=== PATIENT | male | born 1970 | race Caucasian/White ===

== ENCOUNTER 2019-10-25 12:00 | Observation (INO) ==
--- NOTE | 2019-10-25 12:18 | Emergency Department Note ---
History of Present Illness General Chief complaint: Chest Pain Stated complaint: CHEST PAIN,PAIN UNDER RIBS,SOB Time Seen by Provider: 10/25/19 12:06 History of Present Illness Provider complaint: Chest pain and leg rash Location: chest and lower extremity Maximum Pain Intensity: 3 Current Pain Intensity: 2 Quality: + stabbing and + sharp Relieved By: + none Associated symptoms: + chest pain, + cough and + shortness of breath 49-year-old male presents emergency department for chest pain or shortness of breath. Patient reports that the chest pain or shortness of breath have been on and off for the last 6 months. He reports the pain is located in his left chest. He states it is worse when he is yelling at his dogs and children. He also notes that he developed discoloration over his bilateral lower legs 2 days ago. He denies any fevers. He denies any cough. He denies any hemoptysis. He denies any recent travel. He denies any exogenous hormone usage. He denies any loss of taste or smell. Patient states he went to his PCP today who told him to come to the emergency department. Home Medications Home Medications Medication Instructions Recorded Confirmed Type albuterol sulfate 1 inh INHALATION QID PRN 10/25/19 10/25/19 History fluticasone propionate [Flovent 2 puff INHALATION BID 10/25/19 10/25/19 History HFA] ibuprofen 200 mg PO Q6H PRN 10/25/19 10/25/19 History lisinopril 10 mg PO DAILY 10/25/19 10/25/19 History Allergies Allergy/AdvReac Type Severity Reaction Status Date / Time Iodinated Contrast Media Allergy Severe Seizure Unverified 10/25/19 12:57 aspirin Allergy SWELLING Unverified 10/25/19 12:57 Penicillins Allergy SWELLING/HI Unverified 10/25/19 12:57 VES Past Med/Surg History Medical History (Updated 10/25/19 @ 16:43 by Bandar Munson) HLD (hyperlipidemia) HTN (hypertension) No pertinent family history Surgical History (Updated 10/25/19 @ 12:15 by Bandar Munson) No pertinent past surgical history Social History Smoking Status: Current every day smoker Feels Safe at Home: Yes Review of Systems A total of 10 systems reviewed and were otherwise negative Physical Exam Vital Signs Vital Signs - 24 hr 10/25/19 12:01 10/25/19 12:13 10/25/19 12:16 Temperature 36.7 C Temperature Source Oral Pulse Rate 109 H 102 H Pulse Rate from SpO2 Sensor 102 H Respiratory Rate 20 17 Respiratory Effort / Characteristics Non-Labored Spontaneous Respiratory Depth Normal Respiratory Pattern Regular Blood Pressure 152/69 H 179/103 H Blood Pressure Mean 96 133 Pulse Oximetry 94 94 Oxygen Delivery Method Room Air Room Air Room Air Oxygen Flow Rate Sepsis Recent Fever Within 48 Hours No Sepsis New/Unexplained Change in Mental Status N/A Sepsis Action Taken by Nursing No Action Required 10/25/19 13:00 10/25/19 13:30 10/25/19 14:38 Temperature Temperature Source Pulse Rate 102 H 99 H 101 H Pulse Rate from SpO2 Sensor 103 H 98 H 102 H Respiratory Rate 21 22 17 Respiratory Effort / Characteristics Respiratory Depth Respiratory Pattern Blood Pressure 173/107 H 153/104 H 135/96 Blood Pressure Mean 112 129 100 Pulse Oximetry 96 96 99 Oxygen Delivery Method Nasal Cannula Oxygen Flow Rate 3 Sepsis Recent Fever Within 48 Hours Sepsis New/Unexplained Change in Mental Status Sepsis Action Taken by Nursing 10/25/19 15:00 10/25/19 15:01 10/25/19 15:30 Temperature Temperature Source Pulse Rate 104 H 102 H 104 H Pulse Rate from SpO2 Sensor 104 H 101 H 104 H Respiratory Rate 19 16 20 Respiratory Effort / Characteristics Respiratory Depth Respiratory Pattern Blood Pressure 163/116 H 174/97 H Blood Pressure Mean 142 146 Pulse Oximetry 100 98 100 Oxygen Delivery Method Nasal Cannula Nasal Cannula Nasal Cannula Oxygen Flow Rate 3 3 3 Sepsis Recent Fever Within 48 Hours Sepsis New/Unexplained Change in Mental Status Sepsis Action Taken by Nursing 10/25/19 15:31 Temperature Temperature Source Pulse Rate 104 H Pulse Rate from SpO2 Sensor 104 H Respiratory Rate 17 Respiratory Effort / Characteristics Respiratory Depth Respiratory Pattern Blood Pressure Blood Pressure Mean Pulse Oximetry 99 Oxygen Delivery Method Nasal Cannula Oxygen Flow Rate 3 Sepsis Recent Fever Within 48 Hours Sepsis New/Unexplained Change in Mental Status Sepsis Action Taken by Nursing Physical Exam GENERAL: He is oriented to person, place, and time. He appears well-developed and well-nourished. He does not appear distressed. HENT: Exam performed. - Head: Normocephalic and atraumatic. - Right Ear: External ear normal. No mastoid tenderness. - Left Ear: External ear normal. No mastoid tenderness. - Mouth/Throat: The oropharynx is clear and moist. No trismus in the jaw. No dental abscesses or uvula swelling. No oropharyngeal exudate or tonsillar abscesses. EYES: Conjunctivae and EOM are normal. Pupils are equal, round, and reactive to light. Right eye exhibits no discharge. Left eye exhibits no discharge. No scleral icterus. NECK: Normal range of motion. Neck supple. No JVD present. No spinous process t enderness present. No carotid bruit present. No rigidity. No tracheal deviation and normal range of motion present. No Brudzinski's sign and no Kernig's sign noted. CV: Tachycardic rate rate, regular rhythm, normal heart sounds and intact distal pulses. There is no peripheral edema. Palpable radial pulses bue. PULM/CHEST: Rhonchi bilaterally - Chest Wall: He exhibits no tenderness. ABD: The abdomen is soft and obese. Bowel sounds are normal. He has no distension. No mass is present. There is no tenderness. There is no rebound, no guarding, no Gutierrez's sign and no tenderness at McBurney's point. Rovsig negative. MUSC/SKEL: Normal range of motion. There is no peripheral edema, tenderness or deformity. LYMPH: No cervical adenopathy. NEURO: He is alert and oriented to person, place, and time. He has normal strength. No cranial nerve deficit or sensory deficit. Coordination and gait normal. GCS eye subscore is 4. GCS verbal subscore is 5. GCS motor subscore is 6. Cerebellar tests wnl. SKIN: Mild discoloration over the anterior shins bilaterally. The rash is macular. There are no papules. There are no vesicles. They are nonpainful. There is no blanching. Nikolsky negative. There is no warmth over the lesions. The rash is consistent with stasis dermatitis. PSYCH: He has a normal mood and affect. Behavior is normal. Judgment and thought content normal. Course Course 1206: The patient was evaluated in room B5. A complete history and physical exam was performed. Cardiac monitoring: An order was placed for continuous cardiac monitoring. The monitor shows a rate of 108 with sinus rhythm 1600: During the emergency department stay the, the patient became hypoxic on room air. Supplemental oxygen was applied via nasal cannula which improved the patient's oxygen saturation. Patient's troponin is negative. Chest x-ray shows fluid overload. D-dimer was elevated. A subsequent ultrasound of the bilateral lower extremity showed no DVT. We wanted to obtain CT of the chest to rule out PE, however the patient states he has an anaphylactic reaction to contrast dye staining his throat closes up and he cannot breathe. Given the patient's elevated d-dimer, tachycardia on arrival, and hypoxia, PE was still strong on the differential list. I discussed the case with [facility] hospitalist Stacy Ennis PA-C who stated to admit to Dr. Shruthi Roe service. She states that they will determine how best to anticoagulate the patient until VQ scan can be conducted in the morning. Critical Care Time Critical Care Time: Yes Total Critical Care Time: 43 I have personally spent greater than 43 minutes of critical care time in the direct management of this patient. This includes bedside care, interpretation of diagnostic studies, and testing, discussion with consultants, patient, and family members, and other required patient management activities. This 43 minutes is in excess of all separately billable procedures. Medical Decision Making Laboratory Data Result diagrams: 10/25/19 12:43 10/25/19 12:43 Lab Results 10/25/19 10/25/19 10/25/19 Range/Units 12:43 12:43 12:43 WBC 7.25 (4.8-10.8) K/uL RBC 4.78 (4.7-6.1) M/uL Hgb 14.6 (14.0-18.0) g/dL Hct 45.6 (42-52) % MCV 95.4 (80-100) fL MCH 30.5 (25-34) pg MCHC 32.0 (32-36) g/dL RDW Std Deviation 52.9 H (36.4-46.3) fL RDW Coeff of Sallie 15.2 H (11.5-14.5) % Plt Count 202 (130-400) K/uL MPV 12.1 H (7.4-10.4) fL Immature Gran % (Auto) 0.1 % Neut % (Auto) 61.4 % Lymph % (Auto) 26.6 % Coos % (Auto) 6.9 % Eos % (Auto) 4.4 % Baso % (Auto) 0.6 % Neut # (Auto) 4.45 (1.4-6.5) K/uL Lymph # (Auto) 1.93 (1.2-3.4) K/uL Coos # (Auto) 0.50 (0.11-0.59) K/uL Eos # (Auto) 0.32 (0-0.5) K/uL Baso # (Auto) 0.04 (0-0.2) K/uL Immature Gran # (Auto) 0.01 (0.00-0.02) K/uL PT 10.1 (9.0-12.0) Seconds INR 1.0 (0.9-1.1) APTT 26.0 (21.0-31.0) Seconds PTT Ratio 0.9 D-Dimer 1090 H* (0-500) ug/L FEU Sodium 142 (136-145) mmol/L Potassium 4.4 (3.5-5.1) mmol/L Chloride 104 (98-107) mmol/L Carbon Dioxide 33 H (21-32) mmol/L Anion Gap 5.0 (3-11) BUN 8 (7-18) mg/dl Creatinine 0.70 (0.6-1.4) mg/dl Est Cr Clr Drug Dosing 225.0 ml/min Est GFR ( Amer) 129.3 Est GFR (Non-Af Amer) 111.6 BUN/Creatinine Ratio 11.0 (10-20) Glucose 98 (70-99) mg/dl Calcium 9.1 (8.5-10.1) mg/dl Troponin I < 0.015 (0-0.045) ng/ml NT-Pro-B Natriuret Pep (0-450) pg/ml Lipase 156 (73-393) U/L TSH (0.300-4.500) uIu/ml 10/25/19 Range/Units 12:43 WBC (4.8-10.8) K/uL RBC (4.7-6.1) M/uL Hgb (14.0-18.0) g/dL Hct (42-52) % MCV (80-100) fL MCH (25-34) pg MCHC (32-36) g/dL RDW Std Deviation (36.4-46.3) fL RDW Coeff of Sallie (11.5-14.5) % Plt Count (130-400) K/uL MPV (7.4-10.4) fL Immature Gran % (Auto) % Neut % (Auto) % Lymph % (Auto) % Coos % (Auto) % Eos % (Auto) % Baso % (Auto) % Neut # (Auto) (1.4-6.5) K/uL Lymph # (Auto) (1.2-3.4) K/uL Coos # (Auto) (0.11-0.59) K/uL Eos # (Auto) (0-0.5) K/uL Baso # (Auto) (0-0.2) K/uL Immature Gran # (Auto) (0.00-0.02) K/uL PT (9.0-12.0) Seconds INR (0.9-1.1) APTT (21.0-31.0) Seconds PTT Ratio D-Dimer (0-500) ug/L FEU Sodium (136-145) mmol/L Potassium (3.5-5.1) mmol/L Chloride (98-107) mmol/L Carbon Dioxide (21-32) mmol/L Anion Gap (3-11) BUN (7-18) mg/dl Creatinine (0.6-1.4) mg/dl Est Cr Clr Drug Dosing ml/min Est GFR ( Amer) Est GFR (Non-Af Amer) BUN/Creatinine Ratio (10-20) Glucose (70-99) mg/dl Calcium (8.5-10.1) mg/dl Troponin I (0-0.045) ng/ml NT-Pro-B Natriuret Pep 402 (0-450) pg/ml Lipase (73-393) U/L TSH 1.230 (0.300-4.500) uIu/ml Imaging Data Radiologist's Impression: ULTRASOUND BILATERAL LOWER EXTREMITY VENOUS CLINICAL HISTORY: Bilateral lower extremity edema/cellulitis. COMPARISON STUDY: No priors. TECHNIQUE: Real-time, grayscale, and color Doppler sonography of the deep veins of the right and left lower extremity was performed from the inguinal crease to the calf. Compression and augmentation were utilized. FINDINGS: There is no sonographic evidence of deep venous thrombosis identified in the right or left lower extremity. The common femoral, superficial femoral, and popliteal veins are patent and normally compressible bilaterally. The greater saphenous vein and the profunda femoris vein at the junction with the common femoral vein are clear in both legs. The visualized calf veins are patent bilaterally. IMPRESSION: There is no sonographic evidence of deep venous thrombosis identified in the right or left lower extremity. ACT 112: Negative or not required by law. Electronically signed by: Freddy Lizama M.D. 10/25/2019 2:29 PM Dictated: 10/25/19 1428 Transcribed: 10/25/19 1428 XR chest 1V portable CLINICAL HISTORY: Chest Pain pain COMPARISON STUDY: 10/02/2008 FINDINGS: Cardiomegaly. Prominent pulmonary vasculature. Diaphragms are smooth. IMPRESSION: Congestive heart failure. ACT 112: Negative or not required by law. The above report was generated using voice recognition software. It may contain grammatical, syntax or spelling errors. Electronically signed by: Flavio Clayton M.D. 10/25/2019 12:41 PM Dictated: 10/25/19 1240 Transcribed: 10/25/19 1240 ECG Data Indication: + chest pain and + SOB/dyspnea Rate (beats per minute): 105 Rhythm: + sinus tachycardia ECG Intervals/blocks: + Normal QRS, + Normal [place] and + Normal QT-c ECG ST segments: + Normal ST segments MDM Narrative 1206: The patient was evaluated in room B5. A complete history and physical exam was performed. Cardiac monitoring: An order was placed for continuous cardiac monitoring. The monitor shows a rate of 108 with sinus rhythm 1600: During the emergency department stay the, the patient became hypoxic on room air. Supplemental oxygen was applied via nasal cannula which improved the patient's oxygen saturation. Patient's troponin is negative. Chest x-ray shows fluid overload. D-dimer was elevated. A subsequent ultrasound of the bilateral lower extremity showed no DVT. We wanted to obtain CT of the chest to rule out PE, however the patient states he has an anaphylactic reaction to contrast dye staining his throat closes up and he cannot breathe. Given the patient's elevated d-dimer, tachycardia on arrival, and hypoxia, PE was still strong on the differential list. I discussed the case with [facility] hospitalist Stacy Ennis PA-C who stated to admit to Dr. Shruthi otero. She states that they will determine how best to anticoagulate the patient until VQ scan can be conducted in the morning. Impression & Plan Hypoxia, Chest pain, D-dimer, elevated Discharge Plan Visit Data Chief Complaint: Chest Pain Stated Complaint: CHEST PAIN,PAIN UNDER RIBS,SOB ED Provider: Bandar Munson Discharge Problem: Hypoxia, Chest pain, D-dimer, elevated Patient Disposition: Being Evaluated by Hospitalist Forms Stand Alone Forms: [facility] Prescriptions Prescriptions: No Action ibuprofen 200 mg Tablet 200 mg PO Q6H PRN (Reason: Pain) RF: 0 lisinopril 10 mg Tablet 10 mg PO DAILY RF: 0 Flovent HFA 220 mcg/actuation Hfa Aerosol Inhaler 2 puff INHALATION BID RF: 0 albuterol sulfate 90 mcg/actuation Hfa Aerosol Inhaler 1 inh INHALATION QID PRN (Reason: Shortness Of Breath) RF: 0 Referrals Referrals: Juan Antonio Bertrand DO [Primary Care Provider] - Discharge Problem: Chest pain Qualifiers: Chest pain type: unspecified Qualified Code(s): R07.9 - Chest pain, unspecified
--- NOTE | 2019-10-25 12:42 | XRay Report ---
XR chest 1V portable CLINICAL HISTORY: Chest Pain pain COMPARISON STUDY: 10/02/2008 FINDINGS: Cardiomegaly. Prominent pulmonary vasculature. Diaphragms are smooth. IMPRESSION: Congestive heart failure. ACT 112: Negative or not required by law. The above report was generated using voice recognition software. It may contain grammatical, syntax or spelling errors. Electronically signed by: Flavio Clayton M.D. 10/25/2019 12:41 PM
[2019-10-25 12:51] LABS: Basophils # (auto) 0.04 K/uL (0-0.2); Basophils % (auto) 0.6 %; Eosinophils # (auto) 0.32 K/uL (0-0.5); Eosinophils % (auto) 4.4 %; Hematocrit (blood only) 45.6 % (42-52); Hemoglobin 14.6 g/dL (14.0-18.0); Immature Granulocytes # (auto) 0.01 K/uL (0.00-0.02); Immature Granulocytes % (auto) 0.1 %; Lymphocytes # (auto) 1.93 K/uL (1.2-3.4); Lymphocytes % (auto) 26.6 %; Mean Corpuscular Hemoglobin 30.5 pg (25-34); Mean Corpuscular Volume 95.4 fL (80-100); Mean Platelet Volume 12.1 fL (7.4-10.4); Monocytes % (auto) 6.9 %; Neutrophils # (auto) 4.45 K/uL (1.4-6.5); Neutrophils % (auto) 61.4 %; Platelet Count 202 K/uL (130-400); RDW Coefficient of Variation 15.2 % (11.5-14.5); RDW Standard Deviation 52.9 fL (36.4-46.3); Red Blood Count 4.78 M/uL (4.7-6.1); White Blood Count 7.25 K/uL (4.8-10.8)
[2019-10-25 13:04] LABS: Partial Thromboplastin Ratio 0.9; Prothrombin Time 10.1 Seconds (9.0-12.0)
[2019-10-25 13:07] LABS: D Dimer 1090 ug/L FEU (0-500)
[2019-10-25 13:08] LABS: Blood Urea Nitrogen 8 mg/dl (7-18); Calcium 9.1 mg/dl (8.5-10.1); Carbon Dioxide 33 mmol/L (21-32); Chloride 104 mmol/L (98-107); Est GFR (African American) 129.3; Est GFR (Non-African American) 111.6; Glucose 98 mg/dl (70-99); Lipase 156 U/L (73-393); Potassium 4.4 mmol/L (3.5-5.1); Sodium 142 mmol/L (136-145)
[2019-10-25 13:13] LABS: Troponin I < 0.015 ng/ml (0-0.045)
--- NOTE | 2019-10-25 14:30 | Ultrasound Report ---
ULTRASOUND BILATERAL LOWER EXTREMITY VENOUS CLINICAL HISTORY: Bilateral lower extremity edema/cellulitis. COMPARISON STUDY: No priors. TECHNIQUE: Real-time, grayscale, and color Doppler sonography of the deep veins of the right and left lower extremity was performed from the inguinal crease to the calf. Compression and augmentation wer e utilized. FINDINGS: There is no sonographic evidence of deep venous thrombosis identified in the right or left lower extremity. The common femoral, superficial femoral, and popliteal veins are patent and normally compressible bilaterally. The greater saphenous vein and the profunda femoris vein at the junction w ith the common femoral vein are clear in both legs. The visualized calf veins are patent bilaterally. IMPRESSION: There is no sonographic evidence of deep venous thrombosis identified in the right or lef t lower extremity. ACT 112: Negative or not required by law. Electronically signed by: Freddy Lizama M.D. 10/25/2019 2:29 PM
[2019-10-25] MEDS ORDERED: NITROGLYCERIN SL 0.4 MG/TAB TAB SL PRN (16:00)
[2019-10-25] MEDS ORDERED: SODIUM CHLORIDE 0.9% 1000ML 1,000 ML IV SCH (16:00)
[2019-10-25] MEDS ORDERED: ACETAMINOPHEN 325 MG TAB PO PRN (16:00)
[2019-10-25] MEDS ORDERED: ONDANSETRON INJ 2 MG/ML 2 ML VIAL IV PRN (16:00)
[2019-10-25] MEDS ORDERED: FAMOTIDINE 20 MG TAB PO ONE (16:09)
[2019-10-25] MEDS ORDERED: predniSONE 50 MG TAB PO STA (16:09)
[2019-10-25] MEDS ORDERED: predniSONE 50 MG TAB PO SCH (16:15)
[2019-10-25 16:32] LABS: Thyroid Stimulating Hormone 1.23 uIu/ml (0.300-4.500)
[2019-10-25] MEDS ORDERED: HEPARIN SOD (PORCINE) 1000 UNIT/ML 10 ML VIAL ONE (16:32)
[2019-10-25] MEDS ORDERED: Heparin BOLUS **ED Use Only IV STA (16:48)
[2019-10-25] MEDS: HEPARIN SODIUM/DEXTROSE 25,000 UNITS/500 ML BAG IV SCH (16:49)
[2019-10-25] MEDS ORDERED: FUROSEMIDE 40 MG/4 ML VIAL IV STA (16:55)
--- NOTE | 2019-10-25 16:59 | History & Physical Report ---
Date of Service October 25, 2019 Assessment & Plan (1) Chest pain: (2) Hypoxia: (3) D-dimer, elevated: This is a 49-year-old male with significant past medical history of HTN, prediabetes, COPD, tobacco abuse, GERD, history of bipolar, history of seizure, morbid obesity, factor V Leiden heterozygote who presents to ED secondary to left-sided chest pain off and on for the past 2 months; DONNELLY x1 month; worsening lower extremity swelling and redness x2 days. Of most concern given patient's history of factor V Leiden heterozygote is PE in setting of chest pain, hypoxia and sinus tachycardia. Other possible etiologies are ACS, CHF and volume overload (pt reports 70lb weight gain in 6 months), musculoskeletal as chest pain is reproducible, COPD exac Pt initially was saturating well on room air but did have a one-time episode of hypoxia requiring O2 via NC. Admit to telemetry Start heparin drip with bolus until PE ruled out VQ scan stat -anaphylactic reaction to contrast Echo stat to rule out valvular pathology, CHF or right heart strain in setting of concern for PE 40 mg IV Lasix x1 now, and then start 40 IV daily Daily weights, strict I's and O's, heart healthy low-sodium diet (4) Bilateral lower leg cellulitis: Bilateral lower extremity redness started 2 days ago, initially started on left leg and spreading to right Increased pain and swelling Allergy to penicillin Start oral doxycycline and monitor (5) Prediabetes: Last A1c 5.9 04/10/2019 Repeat A1c in a.m., monitor fasting blood sugar (6) HTN (hypertension): Blood pressure elevated in ED Missed a.m. dose of lisinopril, give 10 mg x 1 now Monitor (7) COPD (chronic obstructive pulmonary disease): No acute hernán exacerbation Continue Flovent, he admits to taking albuterol daily May need to step up therapy, likely contributing to DONNELLY (8) Heterozygous factor V Leiden mutation: No prior history of DVT Plan as above (9) Morbid obesity with BMI of 50.0-59.9, adult: Encourage weight loss Consult dietitian (10) GERD (gastroesophageal reflux disease): Continue PPI (11) DVT prophylaxis: Therapeutic heparin drip started Disposition: Admit to telemetry Follow-up: PCP Dr. Bertrand upon discharge Patient was seen and examined in collaboration with Dr. Christianson, please see addendum History of Present Illness Chief Complaint: Chest pain off and on x 2 months; DONNELLY x 1 month; worsened leg swelling x 2 days. Primary Care Provider: Juan Antonio Bertrand DO This is a 49-year-old male with significant past medical history of HTN, prediabetes, COPD, tobacco abuse, GERD, history of bipolar, history of seizure, morbid obesity, factor V Leiden heterozygote who presents to ED secondary to left-sided chest pain off and on for the past 2 months; DONNELLY x1 month; worsening lower extremity swelling and redness x2 days. He was seen and evaluated by PA in clinic and referred to ED. Brother is at bedside. He complains of left lateral chest pain that radiates laterally around the back. Symptoms come and go and do not occur daily. Symptoms are worse with deep inspiration, coughing, yawning or laughing. Symptoms last for approximately seconds to minutes and then resolved. They have never occurred at rest. Over the last month he has noticed increased shortness of breath with exertion and walking but denies any shortness breath at rest. Denies any orthopnea but does appreciate PND. He is currently being evaluated by sleep medicine and is currently scheduled to undergo outpatient sleep study. He has chronic cough in the setting of tobacco abuse. Cough is usually dry and feels it is at his baseline. He currently denies any fever, chills, sweats, lightheadedness, dizziness, syncope, palpitations, hemoptysis, nausea, vomiting, abdominal pain. He has appreciated approximately 70 pound weight gain in the past 6 months despite decreased oral intake. He denies any increased abdominal bloating or early satiety. He does have worsened lower extremity edema which he feels is off and on and mostly always worse in the evening. Over the past 2 days swelling has been persistent and he has noted a red rash to bilateral lower extremities that initially started on his left leg and is now on his right. He does have bilateral lower extremity leg pain but attributes this to arthritis and takes ibuprofen. He denies any prior history of cardiac disease, CHF, PE or DVT. His mother is on warfarin for prior blood clots and he is heterozygote factor V. In ED he was hypertensive but admits to not taking lisinopril. According to ED provider he did have episode of hypoxia documented at 84% requiring O2 via NC. Lab work revealed relatively unremarkable CBC, elevated d-dimer 1090, K4.4, CO2 33, BUN 8, creatinine 0.7, troponin WNL, proBNP 402, TSH 1.23. EKG revealed sinus tachycardia with an incomplete right bundle branch block heart rate 105, QTc 481 MS. Chest x-ray revealed CHF and a venous Doppler study was negative for DVT. Allergies Allergy/AdvReac Type Severity Reaction Status Date / Time Iodinated Contrast Media Allergy Severe Seizure Unverified 10/25/19 12:57 aspirin Allergy SWELLING Unverified 10/25/19 12:57 Penicillins Allergy SWELLING/HI Unverified 10/25/19 12:57 VES Home Medications Home Medications Medication Instructions Recorded Confirmed Type albuterol sulfate 1 inh INHALATION QID PRN 10/25/19 10/25/19 History fluticasone propionate [Flovent 2 puff INHALATION BID 10/25/19 10/25/19 History HFA] ibuprofen 200 mg PO Q6H PRN 10/25/19 10/25/19 History lisinopril 10 mg PO DAILY 10/25/19 10/25/19 History pantoprazole 20 mg PO BID 10/25/19 10/25/19 History Past Med/Surg History Medical History (Updated 10/25/19 @ 17:24 by Stacy Ott PA-C) Bipolar disorder COPD (chronic obstructive pulmonary disease) GERD (gastroesophageal reflux disease) Heterozygous factor V Leiden mutation History of seizure As child HTN (hypertension) Morbid obesity with BMI of 50.0-59.9, adult Prediabetes Tobacco abuse Surgical History History of facial surgery Reconstruction after dog bite History of hernia repair History of tonsillectomy and adenoidectomy Family History Mother Deep vein thrombosis Factor V Leiden Brother Factor V Leiden Father Seizure disorder Social History (Updated 10/25/19 @ 17:15 by Stacy Ott PA-C) Smoking Status: Current every day smoker Tobacco Type: Cigarettes packs per day: 1; Years Smoked: 30; Second Hand Exposure: No; Do You Dip or Chew Tobacco: No; Tobacco Cessation Education Requested by Patient: No Hx Alcohol Use: No Hx Substance Use: No Preferred Language: Yakut Communication Ability: Effective Lockstitch Cup Setter Required: No Beliefs That Will Affect Care: None Current Living Situation: Significant Other current occupational status: disabled Other Information That Helps Us Care for You: No Feels Safe at Home: Yes Safety Concerns: Feels Safe At This Time Review of Systems Review of Systems: All systems reviewed & are unremarkable except as noted in HPI & below Physical Exam Physical Exam: Constitutional: Morbidly obese, male, vitals as above, NAD, sitting up in bed, pleasant, conversing easily Head: Normocephalic, Atraumatic Eyes: PERRL, conjunctivae normal, anicteric sclerae ENMT: external ear and nose normal, oropharynx normal Neck: trachea midline, no thyromegaly normal visual inspection Respiratory: On O2 via NC 2L, normal respiratory effort, lungs clear to auscultation, audible expiratory wheeze right lower lobe cleared with coughing, no rales, rhonchi. Normal insp/exp effort, no accessory muscle use Cardiovascular: Sinus tachycardia, regular rhythm, no murmur, lower extremity pretibial and pedal edema with pretibial erythema left greater than right, pain to palpation, negative Kia Vessels: no JVD or carotid bruit Chest: normal inspection of chest, pinpoint tenderness to left MCL under breast Abdomen: Protuberant abdomen, normal bowel sounds, soft, nontender, no hepatosplenomegaly Musculoskeletal: no cyanosis or clubbing, extremities motor strength 5/5 Skin: Bilateral pretibial erythema, blanchable, left better than right, bilateral pedal pulse +2, warm and dry normal turgor Neurologic: PERRL, EOMI, accommodation nl, no face palsy, no dysarthria CN's II-XI intact bilaterally and moves all extremities Psychiatric: A+Ox3, euthymic affect Lymphatic: no cervical or axillary lymphadenopathy : deferred Results & Data Results & Data ([facility]) Vital Signs (Past 12 Hours) Vital Signs Temp Pulse Resp BP Pulse Ox 10/25/19 15:31 104 H 17 99 10/25/19 15:30 104 H 20 174/97 H 100 10/25/19 15:01 102 H 16 98 10/25/19 15:00 104 H 19 163/116 H 100 10/25/19 14:38 101 H 17 135/96 99 10/25/19 13:30 99 H 22 153/104 H 96 10/25/19 13:00 102 H 21 173/107 H 96 10/25/19 12:13 102 H 17 179/103 H 94 10/25/19 12:01 36.7 C 109 H 20 152/69 H 94 Laboratory Results Short CBC 10/25/19 Range/Units 12:43 WBC 7.25 (4.8-10.8) K/uL Hgb 14.6 (14.0-18.0) g/dL Hct 45.6 (42-52) % Plt Count 202 (130-400) K/uL BMP 10/25/19 12:43 Sodium 142 Potassium 4.4 Chloride 104 Carbon Dioxide 33 H BUN 8 Creatinine 0.70 Glucose 98 Calcium 9.1 Cardiac Enzymes 10/25/19 Range/Units 12:43 Troponin I < 0.015 (0-0.045) ng/ml Diagnostic Findings CXR: CHF Venous Doppler: negative Medications Administered Heparin Sodium/Dextrose (Heparin Sodium/Dextrose) 25,000 units in 500 mls @ 44 mls/hr IV .[id number] SRIKANTH; Protocol Stop: 11/24/19 16:29 Last Admin: 10/25/19 16:49 Dose: 2,200 units/hr, 44 mls/hr Documented by: [id number] Cosigned by: [id number] Discontinued Medications Heparin Sodium (Porcine) (Heparin Iv Bolus) Confirm Administered Dose 10,000 units .ROUTE .STK-MED ONE Stop: 10/25/19 16:33 Last Admin: 10/25/19 16:49 Dose: Not Given Documented by: [id number] Heparin Sodium (Porcine) (Heparin Iv Bolus) 10,000 units IV NOW STA Stop: 10/25/19 16:49 Last Admin: 10/25/19 16:49 Dose: 10,000 units Documented by: [id number] Cosigned by: [id number] Heparin Sodium/Dextrose () 1 ea IV NOW STA; Protocol Stop: 10/25/19 16:29 Last Admin: 10/25/19 16:49 Dose: Not Given Documented by: [id number] Heparin Sodium/Dextrose () 1 ea IV Q15M SRIKANTH; Protocol Stop: 10/25/19 16:46 Last Admin: 10/25/19 16:49 Dose: Not Given Documented by: [id number] ECG Rate (beats per minute): 105 Rhythm: sinus tachycardia Findings: + RBBB and + prolonged QT (481ms) Code Status & VTE Plan Code Status Full Code VTE Prophylaxis Plan VTE Prophylaxis will be ordered: Yes Supervising Physician Co-Signing Physician Notes Date of Service: October 25, 2019 Attending addendum: Patient seen and examined, care coordinated with Stacy Jonas PA-C 49-year-old male with medical history of morbid obesity, tobacco abuse disorder, hypertension, depression, family history of coagulopathy/factor V Leiden heterozygous/no prior history of DVT or PE Came to ER with complaint of left-sided chest pain on and off for last few weeks, Pain is worsened with change of position, activity, noted to have significant shortness of breath, occasional orthopnea Bilateral lower extremity edema/painful pedal edema in the last 2-3 days No fever or chills Has chronic cough secondary to tobacco abuse, underlying COPD Also bilateral lower leg painful/erythematous rash developed in the last 2 days. Vitals as outlined Labs and images reviewed Physical exam: Brief General: Morbid obese, no apparent distress, shortness of breath with minimum activity, on 3 L oxygen, was not on home O2 HEENT: Unremarkable Abdomen: Obese, soft, nontender Extremities: Bilateral 3+ lower extremity edema, bilateral leg erythema, with increased warmth and tenderness noted on both leg, bilateral feet swelling,, tenderness on palpation of dorsal area, no open wounds noted Lungs: Clear to auscultate, episodes of wheeze noted Heart: Regular tachycardic Acute hypoxemic respiratory failure: Presented with acute hypoxia requiring supplemental oxygen, was not on home O2 Symptoms of ongoing shortness of breath, dyspnea on exertion on and off Ongoing for 6 months worse in past 2 weeks History of underlying COPD, does not appear to be in COPD exacerbation High suspicion for PE: Family history of coagulopathy, mother/brother had blood clot PE and DVT Patient is heterozygous for factor V Leiden mutation Not on any anticoagulation, does not take low-dose aspirin Patient had severe allergic reaction to IV contrast dye: Shortness of breath swelling on mouth and tongue, difficulty breathing, leading to seizure Ordered for VQ scan Nuclear med updated Started on IV heparin weight-based protocol-due to high suspicion for thromboembolic event Chest pain: Possible secondary to PE, patient also has reproducible chest wall tenderness, no rash noted EKG sinus tachycardia, initial troponin negative Elevated d-dimer, Evidence of volume overload, bilateral lower extremity edema, suggestive of possible cardiomyopathy rule out PE Ordered for echocardiogram, 40 mg IV Lasix ordered, for volume overload Monitoring telemetry Tachycardia: Sinus tach Rule out PE, echo to rule out underlying cardiomyopathy Bilateral lower extremity cellulitis: Will order for doxycycline, Lower extremity Doppler negative for DVT CODE STATUS: Full code DVT prophylaxis: IV heparin weight-based protocol Please refer to further documentation by Stacy Jonas PA-C for discussion of other issues Carla Christianson MD (1) Chest pain Chest pain type: unspecified Qualified Code(s): R07.9 - Chest pain, unspecified
--- NOTE | 2019-10-25 17:14 | Electrocardiogram Report ---
Test Reason : Blood Pressure : / mmHG Vent. Rate : 105 BPM Atrial Rate : 105 BPM P-R Int : 144 ms QRS Dur : 092 ms QT Int : 364 ms P-R-T Axes : 069 -04 051 degrees QTc Int : 481 ms Sinus tachycardia Incomplete right bundle branch block Borderline ECG When compared with ECG of 20-DEC-2008 23:25, No significant change was found Confirmed by Jermaine Murrell ([id number]) on 10/25/2019 5:14:24 PM Referred By: REFERRED SELF Confirmed By:Sanket Murrell
--- NOTE | 2019-10-25 17:26 | Communication Note ---
Date of Service: October 25, 2019 Attending addendum: Patient seen and examined, care coordinated with Stacy Jonas PA-C 49-year-old male with medical history of morbid obesity, tobacco abuse disorder, hypertension, depression, family history of coagulopathy/factor V Leiden heterozygous/no prior history of DVT or PE Came to ER with complaint of left-sided chest pain on and off for last few weeks, Pain is worsened with change of position, activity, noted to have significant shortness of breath, occasional orthopnea Bilateral lower extremity edema/painful pedal edema in the last 2-3 days No fever or chills Has chronic cough secondary to tobacco abuse, underlying COPD Also bilateral lower leg painful/erythematous rash developed in the last 2 days. Vitals as outlined Labs and images reviewed Physical exam: Brief General: Morbid obese, no apparent distress, shortness of breath with minimum activity, on 3 L oxygen, was not on home O2 HEENT: Unremarkable Abdomen: Obese, soft, nontender Extremities: Bilateral 3+ lower extremity edema, bilateral leg erythema, with increased warmth and tenderness noted on both leg, bilateral feet swelling,, tenderness on palpation of dorsal area, no open wounds noted Lungs: Clear to auscultate, episodes of wheeze noted Heart: Regular tachycardic Acute hypoxemic respiratory failure: Presented with acute hypoxia requiring supplemental oxygen, was not on home O2 Symptoms of ongoing shortness of breath, dyspnea on exertion on and off Ongoing for 6 months worse in past 2 weeks History of underlying COPD, does not appear to be in COPD exacerbation High suspicion for PE: Family history of coagulopathy, mother/brother had blood clot PE and DVT Patient is heterozygous for factor V Leiden mutation Not on any anticoagulation, does not take low-dose aspirin Patient had severe allergic reaction to IV contrast dye: Shortness of breath swelling on mouth and tongue, difficulty breathing, leading to seizure Ordered for VQ scan Nuclear med updated Started on IV heparin weight-based protocol-due to high suspicion for thromboembolic event Chest pain: Possible secondary to PE, patient also has reproducible chest wall tenderness, no rash noted EKG sinus tachycardia, initial troponin negative Elevated d-dimer, Evidence of volume overload, bilateral lower extremity edema, suggestive of possible cardiomyopathy rule out PE Ordered for echocardiogram, 40 mg IV Lasix ordered, for volume overload Monitoring telemetry Tachycardia: Sinus tach Rule out PE, echo to rule out underlying cardiomyopathy Bilateral lower extremity cellulitis: Will order for doxycycline, Lower extremity Doppler negative for DVT CODE STATUS: Full code DVT prophylaxis: IV heparin weight-based protocol Please refer to further documentation by Stacy Jonas PA-C for discussion of other issues Carla Christianson MD
--- NOTE | 2019-10-25 17:58 | Cardiology Consultation ---
Date of Consultation October 25, 2019 Assessment & Plan (1) Hypoxia: (2) Bilateral lower extremity edema: (3) Bilateral lower leg cellulitis: (4) Morbid obesity with BMI of 50.0-59.9, adult: (5) Heterozygous factor V Leiden mutation: The patient has a history of inherited coagulopathy in his family and apparently is heterozygous for the factor V Leiden mutation. Lower extremity venous duplex was negative for DVT. A stat echocardiogram and cardiology consultation was requested by the admitting team due to concerns of possible pulmonary embolism. Besides pulmonary embolism, I think that systolic and diastolic heart failure is also a consideration. Although his proBNP screen was relatively low at 402 PG per mL, I still think that volume overload due to left or right heart failure is a possibility or even obesity hypoventilation syndrome as his CO2 level is elevated. With the echocardiogram having been ordered after hours, a cardiovascular technician is on her way in from home, and just arrived. The report will be available for review after the study is completed. In the meantime I think it is most prudent to continue treatment for possible pulmonary embolism with unfractionated heparin, this would also be helpful in case he is having an acute coronary syndrome, although given his presentation, I am doubtful that this represents ACS although he may have chronic angina. I think the volume overload is the most significant concern. And therefore he has received 40 mg of IV furosemide. Further recommendations will be forthcoming after the echo was completed. History of Present Illness History of Present Illness Zurdo Schreiber is a 49 year old male seen in cardiology consultation per the request of Dr Christianson for the evaluation of chest pain and lower extremity edema. The patient was seen in ED bed B5 at 5:35 pm. During my assessment the patient is sitting upright with his legs dangling over the side of the bed. He remains tachycardic with sinus tachycardia in the range of 100 to 110 bpm. Blood pressure remains elevated with reading of 151/104, oxygen saturation is 99% on 3 L nasal cannula. He denies any acute distress. He states his most significant concern was the swelling and redness of his legs. He states that he has had chest pain/tightness with walking and with "yelling "for the last 1-1/2 years and he does not believe it has changed much. A screening d-dimer is elevated. There was concern therefore for DVT and pulmonary embolism. Lower extremity venous duplex is already been performed and it was within normal limits. He is not a candidate for a CT angiogram due to his past history of airway compromise with receiving contrast media. He also apparently has an allergy to aspirin. Allergies Allergy/AdvReac Type Severity Reaction Status Date / Time Iodinated Contrast Media Allergy Severe Seizure Unverified 10/25/19 12:57 aspirin Allergy SWELLING Unverified 10/25/19 12:57 Penicillins Allergy SWELLING/HI Unverified 10/25/19 12:57 VES Home Medications Home Medications Medication Instructions Recorded Confirmed Type albuterol sulfate 1 inh INHALATION QID PRN 10/25/19 10/25/19 History fluticasone propionate [Flovent 2 puff INHALATION BID 10/25/19 10/25/19 History HFA] ibuprofen 200 mg PO Q6H PRN 10/25/19 10/25/19 History lisinopril 10 mg PO DAILY 10/25/19 10/25/19 History pantoprazole 20 mg PO BID 10/25/19 10/25/19 History Patient History Medical History Bipolar disorder COPD (chronic obstructive pulmonary disease) GERD (gastroesophageal reflux disease) Heterozygous factor V Leiden mutation History of seizure As child HTN (hypertension) Morbid obesity with BMI of 50.0-59.9, adult Prediabetes Tobacco abuse Surgical History History of facial surgery Reconstruction after dog bite History of hernia repair History of tonsillectomy and adenoidectomy Family History Mother Deep vein thrombosis Factor V Leiden Brother Factor V Leiden Father Seizure disorder Social History Smoking Status: Current every day smoker Tobacco Type: Cigarettes packs per day: 1; Years Smoked: 30; Second Hand Exposure: No; Do You Dip or Chew Tobacco: No; Tobacco Cessation Education Requested by Patient: No Hx Alcohol Use: No Hx Substance Use: No Preferred Language: Portuguese Communication Ability: Effective Electronics Repair Technician Required: No Beliefs That Will Affect Care: None Current Living Situation: Significant Other current occupational status: disabled Other Information That Helps Us Care for You: No Feels Safe at Home: Yes Safety Concerns: Feels Safe At This Time Physical Exam Physical Exam: Temp Pulse Resp BP Pulse Ox 36.7 C 104 H 18 151/104 H 99 10/25/19 12:01 10/25/19 16:53 10/25/19 16:53 10/25/19 16:53 10/25/19 16:53 Constitutional: + morbidly obese Respiratory: No focal wheezing. The physical exam of his lungs is honestly compromised due to his body habitus. Cardiovascular: Extremities: + edema (2+ lower extremity pitting edema, with erythema over both of his feet and m) Distant heart sounds, no audible murmur Gastrointestinal (Abdomen): normal bowel sounds, soft, nontender, no hepatosplenomegaly Neurologic: PERRL, EOMI, accommodation nl, no face palsy, no dysarthria Results & Data ([facility]) Vital Signs (Past 12 Hours) Vital Signs Temp Pulse Resp BP Pulse Ox 10/25/19 16:53 104 H 18 151/104 H 99 10/25/19 16:31 106 H 25 H 96 10/25/19 16:30 107 H 21 99 10/25/19 16:01 105 H 17 99 10/25/19 16:00 97 H 17 169/101 H 100 10/25/19 15:31 104 H 17 99 10/25/19 15:30 104 H 20 174/97 H 100 10/25/19 15:01 102 H 16 98 10/25/19 15:00 104 H 19 163/116 H 100 10/25/19 14:38 101 H 17 135/96 99 10/25/19 13:30 99 H 22 153/104 H 96 10/25/19 13:00 102 H 21 173/107 H 96 10/25/19 12:13 102 H 17 179/103 H 94 10/25/19 12:01 36.7 C 109 H 20 152/69 H 94 Laboratory Results Cardiac Enzymes 10/25/19 Range/Units 12:43 Troponin I < 0.015 (0-0.045) ng/ml Coagulation 10/25/19 Range/Units 12:43 PT 10.1 (9.0-12.0) Seconds APTT 26.0 (21.0-31.0) Seconds CBC 10/25/19 Range/Units 12:43 WBC 7.25 (4.8-10.8) K/uL RBC 4.78 (4.7-6.1) M/uL Hgb 14.6 (14.0-18.0) g/dL Hct 45.6 (42-52) % Plt Count 202 (130-400) K/uL Neut # (Auto) 4.45 (1.4-6.5) K/uL Lymph # (Auto) 1.93 (1.2-3.4) K/uL [place] # (Auto) 0.50 (0.11-0.59) K/uL Eos # (Auto) 0.32 (0-0.5) K/uL Baso # (Auto) 0.04 (0-0.2) K/uL Comprehensive Metabolic Panel 10/25/19 Range/Units 12:43 Sodium 142 (136-145) mmol/L Potassium 4.4 (3.5-5.1) mmol/L Chloride 104 (98-107) mmol/L Carbon Dioxide 33 H (21-32) mmol/L BUN 8 (7-18) mg/dl Creatinine 0.70 (0.6-1.4) mg/dl Glucose 98 (70-99) mg/dl Calcium 9.1 (8.5-10.1) mg/dl Intake and Output 10/25/19 10/25/19 10/25/19 06:59 14:59 22:59 Other: Weight 188.3 kg 188.3 kg Patient Weight 10/26/19 06:59 Weight 188.3 kg Diagnostic Findings Radiology report of portable chest x-ray, suggest interstitial edema, and per my review of the film I would agree with this. EKG performed 10/25/2019 12:12 PM revealed sinus tachycardia 105 bpm with incomplete right bundle branch block. Dating back to 2008, incomplete right bundle branch block is apparently chronic.
[2019-10-25] MEDS ORDERED: IPRATROPIUM BROMIDE NEB SOLN 0.02% 2.5 ML VIAL INH PRN (20:11)
[2019-10-25] MEDS ORDERED: IBUPROFEN 200 MG TAB PO PRN (20:11)
[2019-10-25] MEDS ORDERED: XOPENEX/ATROVENT 1.25mg/0.5MG NEB COMBO NEB PRN (20:11)
[2019-10-25] MEDS ORDERED: ALBUTEROL HFA 8 GM INHALER INH PRN (20:11)
--- NOTE | 2019-10-25 20:17 | Nuclear Medicine Report ---
NM pul perfusion CLINICAL HISTORY: Atypical chest pain IV contrast allergy. COMPARISON STUDY: No previous studies for comparison. FINDINGS: The patient was injected with 5.5 mCi of technetium 99m MAA. A perfusion study was performe d. A ventilation study was not performed, as ventilation studies had been deemed not safe during the pandemic. There are bilateral perfusion defects largest on the left. Given the lack of ventilation study, this examination is indeterminate for acute pulmonary embolism. IMPRESSION: Indeterminate study. Bilateral perfusion defects without a ventilation study. ACT 112: Negative or not required by law. Electronically signed by: Srinivasa Andersen M.D. 10/25/2019 8:15 PM
[2019-10-25] MEDS ORDERED: LEVALBUTEROL 1.25MG/0.5ML NEB INH PRN (20:32)
[2019-10-25] MEDS: DOXYCYCLINE HYCLATE 100 MG CAP PO SCH (22:05)
[2019-10-25] MEDS: lisinopriL 10 MG TAB PO SCH (22:06)
[2019-10-25] MEDS: PANTOprazole 40 MG TAB PO SCH (22:06)
[2019-10-25] MEDS: FLUTICASONE FUROATE 200MCG 14 PUFFS/INHALER INH SCH (22:07)
[2019-10-25] MEDS ORDERED: LEVALBUTEROL 1.25MG/0.5ML NEB INH SCH (23:00)
[2019-10-25 23:37] LABS: Partial Thromboplastin Ratio 1.9
[2019-10-25 23:39] LABS: Partial Thromboplastin Time 52.6 Seconds (21.0-31.0)
[2019-10-26] MEDS: HEPARIN SODIUM/DEXTROSE 25,000 UNITS/500 ML BAG IV SCH (04:12)
[2019-10-26 06:36] LABS: Hematocrit (blood only) 46.1 % (42-52); Hemoglobin 14.5 g/dL (14.0-18.0); Mean Corpuscular Hemoglobin 30.3 pg (25-34); Mean Corpuscular Hgb Conc 31.5 g/dL (32-36); Mean Corpuscular Volume 96.4 fL (80-100); Mean Platelet Volume 12.1 fL (7.4-10.4); Platelet Count 160 K/uL (130-400); RDW Coefficient of Variation 15.3 % (11.5-14.5); RDW Standard Deviation 53.8 fL (36.4-46.3); Red Blood Count 4.78 M/uL (4.7-6.1); White Blood Count 7.29 K/uL (4.8-10.8)
[2019-10-26 06:56] LABS: Partial Thromboplastin Ratio 1.8
[2019-10-26 07:00] LABS: Partial Thromboplastin Time 49.3 Seconds (21.0-31.0)
[2019-10-26 07:08] LABS: BUN Creatinine Ratio 12.7 (10-20); Calcium 8.5 mg/dl (8.5-10.1); Creatinine Clr Calc Pharmacy 255.9 ml/min; Est GFR (African American) 136.9; Est GFR (Non-African American) 118.1; Magnesium 1.9 mg/dl (1.8-2.4); Potassium 3.9 mmol/L (3.5-5.1)
--- NOTE | 2019-10-26 07:08 | XRay Report ---
XR ribs LT min 3V w CXR1V HISTORY: 49 years-old Male Pinpoint tenderness to L chest wall acute left-sided chest wall pain COMPARISON: Chest radiograph 10/25/2019 at 12:12 PM TECHNIQUE: PA view the chest with 4 views of the left ribs FINDINGS: Cardiac silhouette is enlarged. Chronic interstitial coarsening with linear atelectasis/scarring of t he lateral left midlung. No pneumothorax, pleural effusion or overt pulmonary edema. Degenerative chantal nges of the shoulders and spine. No acute displaced rib fracture identified. IMPRESSION: 1. Cardiomegaly without acute process. 2. No acute displaced rib fracture or pneumothorax. ACT 112: Negative or not required by law. The above report was generated using voice recognition software. It may contain grammatical, syntax o r spelling errors. Electronically signed by: Alan Durant M.D. 10/26/2019 7:06 AM
[2019-10-26 07:54] LABS: Estimated Average Glucose 131 mg/dl; Hemoglobin A1C 6.2 % (4.5-5.6)
[2019-10-26] MEDS: PANTOprazole 40 MG TAB PO SCH ×2 (08:03→20:35)
[2019-10-26] MEDS: DOXYCYCLINE HYCLATE 100 MG CAP PO SCH (08:03)
[2019-10-26] MEDS: FLUTICASONE FUROATE 200MCG 14 PUFFS/INHALER INH SCH (08:03)
[2019-10-26] MEDS: FUROSEMIDE 40 MG in SYRINGE 0 ML IV SCH (08:03)
[2019-10-26 08:07] LABS: Amphetamines+Metham, Urine Neg (Neg); Barbiturates, Urine Neg (Neg); Benzodiazepine, Urine Neg (Neg); Cocaine, Urine Neg (Neg); MDMA (Ecstacy), Urine Neg (Neg); Methadone, Urine Neg (Neg); Opiate, Urine Neg (Neg); Phencyclidine, Urine Neg (Neg)
[2019-10-26] MEDS ORDERED: ACETAMINOPHEN 325 MG TAB PO PRN (08:18)
[2019-10-26] MEDS: lisinopriL 10 MG TAB PO SCH (08:41)
--- NOTE | 2019-10-26 08:49 | Hospitalist Progress Note ---
Date of Service October 26, 2019 Assessment & Plan (1) Chest pain: ATYPICAL CHEST PAIN -on 10/25/2019 admission "This is a 49-year-old male with significant past medical history of HTN, prediabetes, COPD, tobacco abuse, GERD, history of bipolar, history of seizure, morbid obesity, factor V Leiden heterozygote who presents to ED secondary to left-sided chest pain off and on for the past 2 months; DONNELLY x1 month; worsening lower extremity swelling and redness x2 days." -troponins negative and echocardiogram with normal ejection fraction -patient reported to admitting team that he gained 70 pounds in 6 months. he was initially started on trial if IV Lasix. will monitor daily weights. if weights do no come down with diuresis, then his weight gain may be from body fat rather then fluid weight -patient's history of factor V Leiden heterozygote . elevated D-Dimer of 1090 on admission and he was empirically started on IV heparin drip. There is no sonographic evidence of deep venous thrombosis identified in the right or left lower extremity on LOWER EXTREMITY ULTRASOUND. patient with normal kidney function but because of "seizure" episode associated with contrast study on the past, admitting team could not order CTA chest. Instead a nuclear V/Q scan was ordered, but because of current hospital policies with current COVID-19 pandemic, the ventilation portion of the test was not performed - the nuclear perfusion part was performed and the radiology impression of "bilateral perfusio n defects largest on the left. Given the lack of ventilation study, this examination is indeterminate for acute pulmonary embolism." -while the perfusion part of the V/Q scan was abnormal, the V/Q scan cannot on its own confirm a pulmonary embolism and the lack of deep vein thrombosis of the lower extremities means that pulmonary embolism is less likely -10/26/2019: on day time hospitalist exam, patient's area of discomfort is primarily above the right upper abdomen will check liver function enzymes, bilirubin, amylas, lipase, right upper quadrant ultrasound, gastroenterology evaluation in case any needs for EGD to rule out ulcers in the GI tract as cause of pain, continue twice a day pantoprazole hold the heparin drip for now while awaiting GI evaluation (2) D-dimer, elevated: -management as above (3) Heterozygous factor V Leiden mutation: -No prior history of DVT, no DVT on this admission (4) GERD (gastroesophageal reflux disease): -pantoprazole twice a day (5) Hypoxia: -a 84 percent oxygen saturation was recorded in the ED and patient was started on nasal cannula oxygen -risk of obstructive sleep apnea given large body habitus -management of COPD -on my exam in 10/26/2019, patient breathing on room air (6) Morbid obesity with BMI of 50.0-59.9, adult: -given his body habitus, patient may be at risk of obstructive sleep apnea and should have formal pulmonary function studies as outpatient (7) COPD (chronic obstructive pulmonary disease): -Continue Flovent, he admits to taking albuterol daily (8) Bilateral lower leg cellulitis: -Bilateral lower extremity redness started 2 days ago prior to admission, initially started on left leg and spreading to right -There is no sonographic evidence of deep venous thrombosis identified in the right or left lower extremity on LOWER EXTREMITY ULTRASOUND. -Allergy to penicillin was noted and patient started on oral doxycycline 100 mg BID on admission, continue antibiotic -follow blood culture, ESR, CRP, procalcitonin (9) HTN (hypertension): -on lisinopril (10) Prediabetes: -HbA1c 5.9 04/10/2019 -HbA1c 6.2 on this admission (11) DVT prophylaxis: heparin IV held for now, awaiting gastroenterology assessment Follow-up: PCP Dr. Bertrand upon discharge Admission and Anticipated Discharge Date Admission Date: October 25, 2019 Subjective on day time hospitalist exam, patient's area of discomfort is primarily above the right upper abdomen however no acute tenderness on palpation. patient breathing on room air and not in distress. he denies pain above the sternum. no vomiting. no fever Review of Systems Review of Systems: All systems reviewed & are unremarkable except as noted in Subjective Physical Exam Constitutional: + obese and comfortable Eyes: PERRL, conjunctivae normal, anicteric sclerae EOM intact bilaterally ENMT: external ear and nose normal, oropharynx normal Neck: trachea midline, no thyromegaly normal visual inspection Respiratory: normal respiratory effort, lungs clear to auscultation Gastrointestinal (Abdomen): Inspection/Auscultation: normal bowel sounds Percussion/Palpation: abdomen soft Musculoskeletal: bilateral lower extremity redness/brown color that are on anterior gupta bilaterally Neurologic: PERRL, EOMI, accommodation nl, no face palsy, no dysarthria moves all extremities Psychiatric: A+Ox3, euthymic affect Results & Data Results & Data ([facility]) Vital Signs (Past 12 Hours) Vital Signs Temp Pulse Pulse Resp BP Pulse Ox 10/26/19 07:25 104 H 10/26/19 07:12 36.6 C 98 H 18 154/94 H 93 10/26/19 03:00 36.9 C 109 H 20 145/71 H 94 10/26/19 00:01 102 H 10/25/19 22:00 36.7 C 99 H 20 147/84 H 93 (1) Chest pain Chest pain type: unspecified Qualified Code(s): R07.9 - Chest pain, unspecified
[2019-10-26] MEDS ORDERED: FUROSEMIDE 40 MG/4 ML VIAL IV SCH (09:00)
[2019-10-26 09:32] LABS: Albumin Level 3.3 gm/dl (3.4-5.0); Bilirubin Direct 0.1 mg/dl (0-0.2); Bilirubin,Total 0.6 mg/dl (0.2-1); C Reactive Protein 2.03 mg/dl (0-0.29); Total Protein 7.9 gm/dl (6.4-8.2)
--- NOTE | 2019-10-26 10:36 | Ultrasound Report ---
BILIARY ULTRASOUND CLINICAL HISTORY: right upper quadrant pain COMPARISON STUDY: No previous studies for comparison. FINDINGS: The examination was difficult from a technical standpoint due to the patient's large body habitus. The pancreas appeared normal as visualized. The liver appeared slightly echogenic raising the possibility of hepatic steatosis. No definite gallstones are visualized. There is no gallbladder wall thickening. There is no definite ductal dilatation. There was no right-sided hydronephrosis IMPRESSION: 1. Significantly limited study from a technical standpoint secondary to the patient's body habitus 2. Possible hepatic steatosis 3. No ductal dilatation 4. No definite gallstones. ACT 112: Negative or not required by law. Electronically signed by: Srinivasa Andersen M.D. 10/26/2019 10:34 AM
--- NOTE | 2019-10-26 12:42 | Gastrointestinal Consultation ---
Date of Consultation October 26, 2019 Assessment & Plan (1) GERD (gastroesophageal reflux disease): Recommend EGD to r/o esophagitis, Delarosa's or other esophageal cause of CP. Explained that EGD may explain his pain, provide direction for treatment. Also explained he would be free of pain. Pt is adamant that he does not want EGD but is not specific on his reasons, stating, "I just don't want to mess with that right now." Would continue BID PPI, consider a trial of 40mg BID short term. He was encouraged to contact us or talk with his PCP if he changes his mind. We would be happy to provide an EGD here tomorrow or as an OP. GI will sign off Present on Admission?: Yes Supervising Physician Co-Signing Physician Notes Attg add: I interviewed and examined pt, reviewed chart and labs. Pt with morbid obesity, F5 leiden admit with CP, SOB, underwent w/u for PE, CHF, gall stones. On my interview, his primary complaint is pyrosis - he describes chest burning that may be related to meals. His exam shows non tender abdomen, venous stasis changes in legs. LFTS, lipase are normal. Offered pt EGD/EUS to r/o GERD, PUD, biliary disease. Pt adamantly refuses. Further recs as above. History of Present Illness Reason for Consultation: "upper endoscopy to rule out ulcers" Requesting Physician: Dr. Mahendra Lamas Attending Physician: Mahendra Lamas MD History of Present Illness Mr. Zurdo Schreiber is a 49-year-old obese male with a history of HTN, pre-DM, COPD, tobacco abuse, GERD, Bipolar, Seizure, factor V Leiden heterozygote. He presented to the emergency department yesterday, 10/25/2019, for intermittent chest pain of 2 weeks duration. GI has been consulted to rule out ulcer disease. He has never previously undergone endoscopy. He is maintained on pantoprazole 20 mg twice daily for GERD. Since arrival, he was started on doxycycline 100 mg p.o. twice daily. He was also briefly heparinized while PE was being ruled out. Heparin is now held. He tells me that he has had reflux for years. He experiences heartburn, described as burning behind the sternum then throat pain, both lasting several minutes. He denies any nausea/vomiting. He has a chronic cough, not recently worsened. Allergies Allergy/AdvReac Type Severity Reaction Status Date / Time Iodinated Contrast Media Allergy Severe Seizure Unverified 10/25/19 12:57 aspirin Allergy SWELLING Unverified 10/25/19 12:57 Penicillins Allergy SWELLING/HI Unverified 10/25/19 12:57 VES Home Medications Home Medications Medication Instructions Recorded Confirmed Type albuterol sulfate 1 inh INHALATION QID PRN 10/25/19 10/25/19 History fluticasone propionate [Flovent 2 puff INHALATION BID 10/25/19 10/25/19 History HFA] ibuprofen 200 mg PO Q6H PRN 10/25/19 10/25/19 History lisinopril 10 mg PO DAILY 10/25/19 10/25/19 History pantoprazole 20 mg PO BID 10/25/19 10/25/19 History Patient History Medical History Bipolar disorder COPD (chronic obstructive pulmonary disease) GERD (gastroesophageal reflux disease) Heterozygous factor V Leiden mutation History of seizure As child HTN (hypertension) Morbid obesity with BMI of 50.0-59.9, adult Prediabetes Tobacco abuse Surgical History History of facial surgery Reconstruction after dog bite History of hernia repair History of tonsillectomy and adenoidectomy Family History Mother Deep vein thrombosis Factor V Leiden Brother Factor V Leiden Father Seizure disorder Social History Smoking Status: Current every day smoker Tobacco Type: Cigarettes packs per day: 1; Years Smoked: 30; Second Hand Exposure: No; Do You Dip or Chew Tobacco: No; Tobacco Cessation Education Requested by Patient: No Hx Alcohol Use: No Hx Substance Use: No Preferred Language: [place]i Communication Ability: Effective Director Process Required: No Beliefs That Will Affect Care: None Current Living Situation: Significant Other current occupational status: disabled Other Information That Helps Us Care for You: No Feels Safe at Home: Yes Safety Concerns: Feels Safe At This Time Review of Systems Review of Systems: ROS: Gen: Denies weakness, fevers, weight loss Eyes: No eye redness, or pain, no recent vision changes Resp: Chronic cough, not recently worsened, "smoker's cough." Cardio: + intermittent left mid chest pain; not currently, No palpitations, no irregular beats GI: No abdominal pain, no nausea/vomiting : Denies pain on urination Skin: + lower leg edema and red rash; no jaundice Physical Exam Constitutional: well developed, well nourished, + obese and + physical limitations (due to weight; able to roll side to side but not sit up independently) ENMT: poor dentition Respiratory: normal respiratory effort, lungs clear to auscultation Auscultation: + diminished lung sounds and + rhonchi (clears with cough); no crackles and no rales Cardiovascular: RRR, no murmur, no edema Rate/Rhythm: regular rate Gastrointestinal (Abdomen): normal bowel sounds, soft, nontender, no hepatosplenomegaly obese Skin: Dry, red confluent rash with indiscrete borders over anterior lower legs Neurologic: Motor/Sensory: no tremor PERRL, face symmetrical, moves all extremities Psychiatric: A+Ox3, euthymic affect Lymphatic: no cervical or axillary lymphadenopathy Results & Data ([facility]) Vital Signs (Past 12 Hours) Vital Signs Temp Pulse Pulse Resp BP Pulse Ox 10/26/19 11:28 36.9 C 101 H 16 125/92 94 10/26/19 07:25 104 H 10/26/19 07:12 36.6 C 98 H 18 154/94 H 93 10/26/19 03:00 36.9 C 109 H 20 145/71 H 94 Laboratory Results WBC 7, Hb 14, Hct 46, platelets 160, Na 140, K 3.9, BUN 8, Cr 0.6, glucose 164. Diagnostic Findings Liver US 10/26/19: 1. Significantly limited study from a technical standpoint secondary to the patient's body habitus 2. Possible hepatic steatosis 3. No ductal dilatation 4. No definite gallstones.
[2019-10-26] MEDS ORDERED: ALUMINUM/MAGNESIUM SUSP 30 ML UDC PO STA (13:49)
--- NOTE | 2019-10-26 14:42 | Cardiology Progress Note ---
Date of Service October 26, 2019 Assessment & Plan (1) Bilateral lower extremity edema: (2) Bilateral lower leg cellulitis: Symptoms of chest pain improved. Troponin negative on a serial basis. Question if obstructive sleep apnea hypoventilation syndrome is playing a role with associated fluid retention. Despite history of inherited hypercoagulable state, I do not think his presentation is suggestive of pulmonary embolism. Recommend diuretics, antibiotics. Would stop UF heparin infusion and consider DVT prophylaxis dose of UF Heparin or Lovenox. Consider screening nocturnal pulse oximetry in hospital, sleep study as outpatient. Subjective Patient comfortable. Denies chest pain. Telemetry reveals sinus tachycardia at 95-104 bpm. Physical Exam Physical Exam: Temp Pulse Resp BP Pulse Ox 36.9 C 101 H 16 125/92 94 10/26/19 11:28 10/26/19 11:28 10/26/19 11:28 10/26/19 11:28 10/26/19 11:28 Constitutional: + morbidly obese Respiratory: normal respiratory effort, lungs clear to auscultation Cardiovascular: Rate/Rhythm: regular rhythm Heart Sounds: no murmur Extremities: + edema (1-2 + edema. ) Gastrointestinal (Abdomen): exam limited by body habitus, non tender Neurologic: PERRL, EOMI, accommodation nl, no face palsy, no dysarthria Results & Data Vital Signs (Past 12 Hours) Vital Signs Temp Pulse Pulse Resp BP Pulse Ox 10/26/19 11:28 36.9 C 101 H 16 125/92 94 10/26/19 07:25 104 H 10/26/19 07:12 36.6 C 98 H 18 154/94 H 93 10/26/19 03:00 36.9 C 109 H 20 145/71 H 94 Laboratory Results Cardiac Enzymes 10/25/19 10/25/19 10/26/19 Range/Units 20:32 23:00 08:50 AST 19 (15-37) U/L Troponin I < 0.015 < 0.015 (0-0.045) ng/ml Coagulation 10/25/19 10/26/19 Range/Units 23:00 06:27 APTT 52.6 H* 49.3 H* (21.0-31.0) Seconds Lipids 10/26/19 Range/Units 06:27 Triglycerides 151 H (0-150) mg/dl Cholesterol 185 (0-200) mg/dl HDL Cholesterol 37 mg/dl Cholesterol/HDL Ratio 5 CBC 10/26/19 Range/Units 06:27 WBC 7.29 (4.8-10.8) K/uL RBC 4.78 (4.7-6.1) M/uL Hgb 14.5 (14.0-18.0) g/dL Hct 46.1 (42-52) % Plt Count 160 (130-400) K/uL Comprehensive Metabolic Panel 10/26/19 10/26/19 Range/Units 06:27 08:50 Sodium 140 (136-145) mmol/L Potassium 3.9 (3.5-5.1) mmol/L Chloride 101 (98-107) mmol/L Carbon Dioxide 35 H (21-32) mmol/L BUN 8 (7-18) mg/dl Creatinine 0.61 (0.6-1.4) mg/dl Glucose 141 H (70-99) mg/dl Calcium 8.5 (8.5-10.1) mg/dl Direct Bilirubin 0.1 (0-0.2) mg/dl AST 19 (15-37) U/L ALT 25 (12-78) U/L Alkaline Phosphatase 93 (45-117) U/L Total Protein 7.9 (6.4-8.2) gm/dl Albumin 3.3 L (3.4-5.0) gm/dl Intake and Output 10/25/19 10/26/19 10/26/19 22:59 06:59 14:59 Intake Total 340 / 1113.200 650.000 / 1113.200 124.667 / 124.667 Balance 340 / 1113.200 650.000 / 1113.200 124.667 / 124.667 Intake: IV 500.000 / 623.200 124.667 / 124.667 HEPARIN SODIUM/DEXTROSE 25,000 500.000 / 623.200 124.667 / 124.667 units In 500 ml @ 2,200 UNITS/ HR 44 mls/hr IV .[id number] [facility] Rx #:[id number] Oral 340 / 490 150 / 490 Other: Weight 185.6 kg
[2019-10-26] MEDS: ENOXAPARIN INJ 40 MG/0.4 ML SYR SQ SCH (15:33)
--- NOTE | 2019-10-26 17:30 | Electrocardiogram Report ---
Test Reason : Blood Pressure : / mmHG Vent. Rate : 090 BPM Atrial Rate : 090 BPM P-R Int : 166 ms QRS Dur : 098 ms QT Int : 382 ms P-R-T Axes : 067 011 052 degrees QTc Int : 467 ms Normal sinus rhythm with sinus arrhythmia Incomplete right bundle branch block Borderline ECG When compared with ECG of 25-OCT-2019 12:12, No significant change was found Confirmed by Jermaine Murrell ([id number]) on 10/26/2019 5:30:14 PM Referred By: REFERRED SELF Confirmed By:Sanket Murrell
[2019-10-26] MEDS: DOXYCYCLINE HYCLATE 100 MG in DEXTROSE 5% 100 ML IV SCH (20:37)
[2019-10-27 07:20] LABS: Basophils # (auto) 0.02 K/uL (0-0.2); Basophils % (auto) 0.3 %; Eosinophils # (auto) 0.28 K/uL (0-0.5); Eosinophils % (auto) 3.6 %; Hematocrit (blood only) 49.3 % (42-52); Hemoglobin 15.1 g/dL (14.0-18.0); Immature Granulocytes # (auto) 0.01 K/uL (0.00-0.02); Immature Granulocytes % (auto) 0.1 %; Lymphocytes # (auto) 1.25 K/uL (1.2-3.4); Lymphocytes % (auto) 15.9 %; Mean Corpuscular Hemoglobin 30.2 pg (25-34); Mean Corpuscular Hgb Conc 30.6 g/dL (32-36); Mean Corpuscular Volume 98.6 fL (80-100); Mean Platelet Volume 12.1 fL (7.4-10.4); Monocytes # (auto) 0.64 K/uL (0.11-0.59); Monocytes % (auto) 8.2 %; Neutrophils # (auto) 5.65 K/uL (1.4-6.5); Neutrophils % (auto) 71.9 %; Platelet Count 185 K/uL (130-400); RDW Coefficient of Variation 15.5 % (11.5-14.5); RDW Standard Deviation 55.5 fL (36.4-46.3); White Blood Count 7.85 K/uL (4.8-10.8)
[2019-10-27] MEDS: FLUTICASONE FUROATE 200MCG 14 PUFFS/INHALER INH SCH (07:42)
[2019-10-27] MEDS: lisinopriL 10 MG TAB PO SCH (07:43)
[2019-10-27] MEDS: PANTOprazole 40 MG TAB PO SCH (07:43)
[2019-10-27 07:53] LABS: BUN Creatinine Ratio 14.6 (10-20); Calcium 8.6 mg/dl (8.5-10.1); Creatinine Clr Calc Pharmacy 190.3 ml/min; Est GFR (African American) 121.2; Est GFR (Non-African American) 104.6; Potassium 4.5 mmol/L (3.5-5.1)
[2019-10-27] MEDS: FUROSEMIDE 40 MG in SYRINGE 0 ML IV SCH (08:31)
[2019-10-27] MEDS: DOXYCYCLINE HYCLATE 100 MG in DEXTROSE 5% 100 ML IV SCH (08:36)
--- NOTE | 2019-10-27 10:23 | Cardiology Progress Note ---
Date of Service October 27, 2019 Assessment & Plan (1) Bilateral lower leg cellulitis: (2) Bilateral lower extremity edema: (3) Sinus tachycardia: Add metoprolol succinate for sinus tachycardia and hypertension. Continue furosemide, would consider increasing the dose. "no urine output" recorded. Continue antibiotic therapy. Clinical suspicion for pulmonary embolism is low. Consider sleep med evaluation as outpatient. Cardiology to sign off. Subjective Patient seen in follow-up. Denies chest discomfort. States his legs are starting to feel better although they were still very red and edema is still noted. Telemetry reveals sinus tachycardia in the range of 95 to 105 bpm, I suspect that this is a chronic issue. Review of Systems Review of Systems: All systems reviewed & are unremarkable except as noted in HPI & below Physical Exam Physical Exam: Temp Pulse Resp BP Pulse Ox 36.8 C 102 H 20 138/96 85 L 10/27/19 07:32 10/27/19 09:20 10/27/19 09:20 10/27/19 07:32 10/27/19 09:20 Constitutional: WD/WN, vitals as above Cardiovascular: Rate/Rhythm: regular rhythm and + tachycardic Extremities: + edema (1+ edema, erythema over lower legs) Gastrointestinal (Abdomen): normal bowel sounds, soft, nontender, no hepatosplenomegaly Neurologic: PERRL, EOMI, accommodation nl, no face palsy, no dysarthria Results & Data Vital Signs (Past 12 Hours) Vital Signs Temp Pulse Pulse Pulse Pulse Pulse Pulse 10/27/19 09:20 95 H 99 H 116 H 109 H 10/27/19 07:32 36.8 C 100 H 10/27/19 03:31 36.6 C 102 H 10/27/19 00:00 93 H 10/26/19 23:24 10/26/19 23:08 10/26/19 22:46 36.6 C 100 H Pulse Resp Resp Resp Resp Resp Resp 10/27/19 09:20 102 H 20 20 24 22 20 10/27/19 07:32 18 10/27/19 03:31 18 10/27/19 00:00 10/26/19 23:24 10/26/19 23:08 90 10/26/19 22:46 20 BP BP Pulse Ox Pulse Ox Pulse Ox Pulse Ox Pulse Ox 10/27/19 09:20 88 L 94 95 95 10/27/19 07:32 138/96 100 10/27/19 03:31 148/81 H 99 10/27/19 00:00 10/26/19 23:24 10/26/19 23:08 10/26/19 22:46 133/82 93 Pulse Ox 10/27/19 09:20 85 L 10/27/19 07:32 10/27/19 03:31 10/27/19 00:00 10/26/19 23:24 80 L 10/26/19 23:08 83 L 10/26/19 22:46 Laboratory Results CBC 10/27/19 Range/Units 06:57 WBC 7.85 (4.8-10.8) K/uL RBC 5.00 (4.7-6.1) M/uL Hgb 15.1 (14.0-18.0) g/dL Hct 49.3 (42-52) % Plt Count 185 (130-400) K/uL Neut # (Auto) 5.65 (1.4-6.5) K/uL Lymph # (Auto) 1.25 (1.2-3.4) K/uL [place] # (Auto) 0.64 H (0.11-0.59) K/uL Eos # (Auto) 0.28 (0-0.5) K/uL Baso # (Auto) 0.02 (0-0.2) K/uL Comprehensive Metabolic Panel 10/27/19 Range/Units 06:57 Sodium 139 (136-145) mmol/L Potassium 4.5 D (3.5-5.1) mmol/L Chloride 99 (98-107) mmol/L Carbon Dioxide 39 H (21-32) mmol/L BUN 12 (7-18) mg/dl Creatinine 0.82 (0.6-1.4) mg/dl Glucose 141 H (70-99) mg/dl Calcium 8.6 (8.5-10.1) mg/dl Intake and Output 10/26/19 10/27/19 10/27/19 22:59 06:59 14:59 Intake Total 310 / 1090.534 320 / 1090.534 Balance 310 / 1090.534 320 / 1090.534 Intake: IV 110 / 570.534 Vibramycin 100 mg In D5 100 ml 110 / 110 @ 50 mls/hr IV Q12H [facility] Rx#: [id number] Oral 200 / 520 320 / 520 Other: Weight 185.4 kg
[2019-10-27] MEDS ORDERED: METOPROLOL SUCC 25MG EXT REL TAB PO SCH (10:30)
[2019-10-27] MEDS ORDERED: CALAMINE/PRAMOXINE LOTION 180 APPLN/180 ML BTL EXT PRN (12:45)
[2019-10-27] MEDS ORDERED: FUROSEMIDE 40 MG TAB PO ONE (13:00)
--- NOTE | 2019-10-27 13:23 | XRay Report ---
TWO VIEW CHEST CLINICAL HISTORY: Follow-up airspace consolidation. FINDINGS: PA and lateral chest radiographs are compared to study dated 10/25/2019. The heart is top nor mal for projection. Bibasilar opacities likely represent scarring/atelectasis and are similar to prev ious. There is developing patchy airspace consolidation in the right upper lung. There is no pneumoth orax. The bony thorax appears intact. Degenerative change is noted in the thoracic spine. IMPRESSION: There are developing patchy airspace opacities in the right upper lung. Correlate clinica lly for evidence of an infectious/inflammatory pneumonitis. Radiographic follow-up to resolution is r ecommended. ACT 112: Negative or not required by law. Electronically signed by: Freddy Lizama M.D. 10/27/2019 1:22 PM
[2019-10-27] MEDS ORDERED: AMOXICILLIN/CLAVULANATE 875 MG TAB PO ONE (13:47)
--- NOTE | 2019-10-27 14:24 | Hospitalist Progress Note ---
Date of Service October 27, 2019 Assessment & Plan (1) Chest pain: ATYPICAL CHEST PAIN -on 10/25/2019 admission "This is a 49-year-old male with significant past medical history of HTN, prediabetes, COPD, tobacco abuse, GERD, history of bipolar, history of seizure, morbid obesity, factor V Leiden heterozygote who presents to ED secondary to left-sided chest pain off and on for the past 2 months; DONNELLY x1 month; worsening lower extremity swelling and redness x2 days." -troponins negative and echocardiogram with normal ejection fraction -patient reported to admitting team that he gained 70 pounds in 6 months. he was initially started on trial if IV Lasix. will monitor daily weights. if weights do no come down with diuresis, then his weight gain may be from body fat rather then fluid weight -patient's history of factor V Leiden heterozygote . elevated D-Dimer of 1090 on admission and he was empirically started on IV heparin drip. There is no sonographic evidence of deep venous thrombosis identified in the right or left lower extremity on LOWER EXTREMITY ULTRASOUND. patient with normal kidney function but because of "seizure" episode associated with contrast study on the past, admitting team could not order CTA chest. Instead a nuclear V/Q scan was ordered, but because of current hospital policies with current COVID-19 pandemic, the ventilation portion of the test was not performed - the nuclear perfusion part was performed and the radiology impression of "bilateral perfusio n defects largest on the left. Given the lack of ventilation study, this examination is indeterminate for acute pulmonary embolism." -while the perfusion part of the V/Q scan was abnormal, the V/Q scan cannot on its own confirm a pulmonary embolism and the lack of deep vein thrombosis of the lower extremities means that pulmonary embolism is less likely -10/26/2019: on day time hospitalist exam, patient's area of discomfort is primarily above the right upper abdomen right upper quadrant ultrasound was unrevealing for GI etiology of abdomen/chest pain (Significantly limited study from a technical standpoint secondary to the patient's body habitus, Possible hepatic steatosis, No ductal dilatation, No definite gallstones). Patient also declined EGD as offered by gastroenterology. patient does not want systemic anticoagulation -10/27/2019: no acute pain symptoms reported by patient today. he wishes to be discharged. Oxygen supplied being arranged through medical case worker. Cardiology service participated in his evaluation and also concludes that suspicion for pulmonary embolism is low; cardiology added metoprolol to his medication regimen (2) Hypoxia: Obstructive Sleep Apnea -he has been following with [facility] pulmonary clinic for obstructive sleep apnea and treatment -a 84 percent oxygen saturation was recorded in the ED and patient was started on nasal cannula oxygen on this hospital stay -patient has difficulty with using CPAP mask, Overnight pulse oximetry was performed between 10/25 to 10/26 and results of this testing shows that patient requires nasal cannula 4 liter/min at night and 3 liter/min during day time with rest and activities -admission chest X ray was suggestive of fluid overload but patient with normal echocardiogram, a trial of Lasix given. -A repeat Chest X ray (2 view) 10/27/2019: The heart is top normal for projection. Bibasilar opacities likely represent scarring/atelectasis and are similar to previous. There is developing patchy airspace consolidation in the right upper lung. There is no pneumothorax. The bony thorax appears intact. Degenerative change is noted in the thoracic spine -In response to 10/27/2019 X ray of right upper lung patchy consolidation (however procalcitonin normal on 10/26/2019), Augmentin twice a day started, Continue with the Doxycycline -management of COPD, continue Flovent, albuterol -patient plans on using his nicotine patch supplies at home to quit smoking -he has upcoming primary care, pulmonary clinic, and nutrition clinic appointments 10/31/2019 6:20 PM Provider Juan Antonio Bertrand DO Department [facility] 11/07/2019 3:20 PM Provider Rossana Asif DO Department Pulmonary Medicine, [facility] 12/19/2019 1:00 PM Provider Ayesha Kessler RDN Department Nutrition, [facility] (3) COPD (chronic obstructive pulmonary disease): Chronic obstructive pulmonary disease, Tobacco Use -management as above (4) Morbid obesity with BMI of 50.0-59.9, adult: -management as above (5) D-dimer, elevated: -management as above -patient does not want systemic anticoagulation (6) Heterozygous factor V Leiden mutation: -No prior history of DVT, no DVT on this admission (7) Bilateral lower leg cellulitis: Bilateral Lower extremity edema -Bilateral lower extremity redness started 2 days ago prior to admission, initially started on left leg and spreading to right -There is no sonographic evidence of deep venous thrombosis identified in the right or left lower extremity on LOWER EXTREMITY ULTRASOUND. -Allergy to penicillin was noted and patient started on oral doxycycline 100 mg BID on admission, continue antibiotic -10/26/2019 labs: ESR elevated as 63, CRP elevated as 2.03 , procalcitonin normal -blood culture no growth to date -continue doxycycline, continue trial of Lasix, calamine lotion to the shins to help with itching (8) GERD (gastroesophageal reflux disease): -pantoprazole twice a day (9) Prediabetes: -HbA1c 5.9 04/10/2019 -HbA1c 6.2 on this admission, management when follow up with primary care doctor (10) HTN (hypertension): -on lisinopril (11) DVT prophylaxis: Lovenox 40 mg daily as a DVT prophylaxis dosing while inpatient Admission and Anticipated Discharge Date Admission Date: October 25, 2019 Subjective Patient had overnight oximetry and the 2 step test. Patient denies acute pain. no respiratory distress but is needing supplementary oxygen as per testing results. no vomiting. no dizziness. no headache Review of Systems Review of Systems: All systems reviewed & are unremarkable except as noted in Subjective Physical Exam Constitutional: + obese and comfortable Eyes: PERRL, conjunctivae normal, anicteric sclerae EOM intact bilaterally ENMT: external ear and nose normal, oropharynx normal Neck: trachea midline, no thyromegaly normal visual inspection Respiratory: normal respiratory effort, lungs clear to auscultation Cardiovascular: Rate/Rhythm: regular rate and regular rhythm Gastrointestinal (Abdomen): Inspection/Auscultation: normal bowel sounds Percussion/Palpation: abdomen soft Skin: patchy redness of anterior gupta, patient has been scratching the right gupta and there are scratch cortes Neurologic: PERRL, EOMI, accommodation nl, no face palsy, no dysarthria moves all extremities Psychiatric: A+Ox3, euthymic affect Results & Data Results & Data ([facility]) Vital Signs (Past 12 Hours) Vital Signs Temp Pulse Pulse Pulse Pulse Pulse Pulse 10/27/19 12:55 96 H 10/27/19 11:57 36.4 C L 104 H 10/27/19 09:20 95 H 99 H 116 H 109 H 10/27/19 07:32 36.8 C 100 H 10/27/19 03:31 36.6 C 102 H Pulse Resp Resp Resp Resp Resp Resp 10/27/19 12:55 10/27/19 11:57 20 10/27/19 09:20 102 H 20 20 24 22 20 10/27/19 07:32 18 10/27/19 03:31 18 BP BP Pulse Ox Pulse Ox Pulse Ox Pulse Ox Pulse Ox 10/27/19 12:55 10/27/19 11:57 139/95 95 10/27/19 09:20 88 L 94 95 95 10/27/19 07:32 138/96 100 10/27/19 03:31 148/81 H 99 Pulse Ox 10/27/19 12:55 10/27/19 11:57 10/27/19 09:20 85 L 10/27/19 07:32 10/27/19 03:31 (1) Chest pain Chest pain type: unspecified Qualified Code(s): R07.9 - Chest pain, unspecified
[2019-10-27] MEDS: ENOXAPARIN INJ 40 MG/0.4 ML SYR SQ SCH ×2 (14:36→14:39)
--- NOTE | 2019-10-27 15:30 | Discharge Summary ---
Date of Service October 27, 2019 Admission HPI Per Admitting Provider This is a 49-year-old male with significant past medical history of HTN, prediabetes, COPD, tobacco abuse, GERD, history of bipolar, history of seizure, morbid obesity, factor V Leiden heterozygote who presents to ED secondary to left-sided chest pain off and on for the past 2 months; DONNELLY x1 month; worsening lower extremity swelling and redness x2 days. He was seen and evaluated by PA in clinic and referred to ED. Brother is at bedside. He complains of left lateral chest pain that radiates laterally around the back. Symptoms come and go and do not occur daily. Symptoms are worse with deep inspiration, coughing, yawning or laughing. Symptoms last for approximately seconds to minutes and then resolved. They have never occurred at rest. Over the last month he has noticed increased shortness of breath with exertion and walking but denies any shortness breath at rest. Denies any orthopnea but does appreciate PND. He is currently being evaluated by sleep medicine and is currently scheduled to undergo outpatient sleep study. He has chronic cough in the setting of tobacco abuse. Cough is usually dry and feels it is at his baseline. He currently denies any fever, chills, sweats, lightheadedness, dizziness, syncope, palpitations, hemoptysis, nausea, vomiting, abdominal pain. He has appreciated approximately 70 pound weight gain in the past 6 months despite decreased oral intake. He denies any increased abdominal bloating or early satiety. He does have worsened lower extremity edema which he feels is off and on and mostly always worse in the evening. Over the past 2 days swelling has been persistent and he has noted a red rash to bilateral lower extremities that initially started on his left leg and is now on his right. He does have bilateral lower extremity leg pain but attributes this to arthritis and takes ibuprofen. He denies any prior history of cardiac disease, CHF, PE or DVT. His mother is on warfarin for prior blood clots and he is heterozygote factor V. In ED he was hypertensive but admits to not taking lisinopril. According to ED provider he did have episode of hypoxia documented at 84% requiring O2 via NC. Lab work revealed relatively unremarkable CBC, elevated d-dimer 1090, K4.4, CO2 33, BUN 8, creatinine 0.7, troponin WNL, proBNP 402, TSH 1.23. EKG revealed sinus tachycardia with an incomplete right bundle branch block heart rate 105, QTc 481 MS. Chest x-ray revealed CHF and a venous Doppler study was negative for DVT. Principal Diagnosis ATYPICAL CHEST PAIN GERD (gastroesophageal reflux disease) Hypoxia likely secondary to Obstructive Sleep Apnea, Chronic obstructive pulmonary disease, Tobacco Use Morbid obesity with BMI of 50.0-59.9 Prediabetes D-dimer elevated, history of Heterozygous factor V Leiden mutation Bilateral lower leg cellulitis Bilateral Lower extremity edema Discharge Exam Constitutional + obese and comfortable Eyes PERRL, conjunctivae normal, anicteric sclerae EOM intact bilaterally ENMT external ear and nose normal, oropharynx normal Neck trachea midline, no thyromegaly normal visual inspection Respiratory normal respiratory effort, lungs clear to auscultation Cardiovascular Rate/Rhythm: regular rate and regular rhythm Gastrointestinal (Abdomen) Inspection/Auscultation: normal bowel sounds Percussion/Palpation: abdomen soft Neurologic PERRL, EOMI, accommodation nl, no face palsy, no dysarthria moves all extremities Psychiatric A+Ox3, euthymic affect Discharge Data Allergies Allergy/AdvReac Type Severity Reaction Status Date / Time Iodinated Contrast Media Allergy Severe Seizure Unverified 10/25/19 12:57 aspirin Allergy SWELLING Unverified 10/25/19 12:57 Penicillins Allergy SWELLING/HI Unverified 10/25/19 12:57 VES Consultations 10/25/19 16:01 ED Decision to Admit Stat 10/25/19 21:54 Consult Cardiology Routine 10/26/19 08:29 Consult Gastroenterology Routine Ordered Studies 10/25/19 13:10 US venous doppler LE BI Stat 10/26/19 10:00 US liver Routine Hospital Course (1) Chest pain: ATYPICAL CHEST PAIN -on 10/25/2019 admission "This is a 49-year-old male with significant past medical history of HTN, prediabetes, COPD, tobacco abuse, GERD, history of bipolar, history of seizure, morbid obesity, factor V Leiden heterozygote who presents to ED secondary to left-sided chest pain off and on for the past 2 months; DONNELLY x1 month; worsening lower extremity swelling and redness x2 days." -troponins negative and echocardiogram with normal ejection fraction -patient reported to admitting team that he gained 70 pounds in 6 months. he was initially started on trial if IV Lasix. will monitor daily weights. if weights do no come down with diuresis, then his weight gain may be from body fat rather then fluid weight -patient's history of factor V Leiden heterozygote . elevated D-Dimer of 1090 on admission and he was empirically started on IV heparin drip. There is no sonographic evidence of deep venous thrombosis identified in the right or left lower extremity on LOWER EXTREMITY ULTRASOUND. patient with normal kidney function but because of "seizure" episode associated with contrast study on the past, admitting team could not order CTA chest. Instead a nuclear V/Q scan was ordered, but because of current hospital policies with current COVID-19 pandemic, the ventilation portion of the test was not performed - the nuclear perfusion part was performed and the radiology impression of "bilateral perfusion defects largest on the left. Given the lack of ventilation study, this examination is indeterminate for acute pulmonary embolism." -while the perfusion part of the V/Q scan was abnormal, the V/Q scan cannot on its own confirm a pulmonary embolism and the lack of deep vein thrombosis of the lower extremities means that pulmonary embolism is less likely -10/26/2019: on day time hospitalist exam, patient's area of discomfort is primarily above the right upper abdomen right upper quadrant ultrasound was unrevealing for GI etiology of abdomen/chest pain (Significantly limited study from a technical standpoint secondary to the patient's body habitus, Possible hepatic steatosis, No ductal dilatation, No definite gallstones). Patient also declined EGD as offered by gastroenterology. patient does not want systemic anticoagulation -10/27/2019: no acute pain symptoms reported by patient today. he wishes to be discharged. Oxygen supplied arranged through rehabilitation case coordinator and delivered to bedside. Cardiology service participated in his evaluation and also concludes that suspicion for pulmonary embolism is low; cardiology added metoprolol to his medication regimen (2) Hypoxia: Hypoxia likely secondary to Obstructive Sleep Apnea, Chronic obstructive pulmonary disease, Tobacco Use Obstructive Sleep Apnea -he has been following with [facility] pulmonary clinic for obstructive sleep apnea and treatment -a 84 percent oxygen saturation was recorded in the ED and patient was started on nasal cannula oxygen on this hospital stay -patient has difficulty with using CPAP mask, Overnight pulse oximetry was performed between 10/25 to 10/26 and results of this testing shows that patient requires nasal cannula 4 liter/min at night and 3 liter/min during day time with rest and activities -admission chest X ray was suggestive of fluid overload but patient with normal echocardiogram, a trial of Lasix given. -A repeat Chest X ray (2 view) 10/27/2019: The heart is top normal for projection. Bibasilar opacities likely represent scarring/atelectasis and are similar to previous. There is developing patchy airspace consolidation in the right upper lung. There is no pneumothorax. The bony thorax appears intact. Degenerative change is noted in the thoracic spine -In response to 10/27/2019 X ray of right upper lung patchy consolidation (however procalcitonin normal on 10/26/2019), Augmentin twice a day started, Continue with the Doxycycline -management of COPD, continue Flovent, albuterol -patient plans on using his nicotine patch supplies at home to quit smoking -he has upcoming primary care, pulmonary clinic, and nutrition clinic appointments 10/31/2019 6:20 PM Provider Juan Antonio Bertrand DO Department [facility] 11/07/2019 3:20 PM Provider Rossana Asif DO Department Pulmonary Medicine, [facility] 12/19/2019 1:00 PM Provider Ayesha Kessler RDN Department Nutrition, [facility] (3) COPD (chronic obstructive pulmonary disease): Chronic obstructive pulmonary disease, Tobacco Use -management as above (4) Morbid obesity with BMI of 50.0-59.9, adult: -management as above (5) D-dimer, elevated: -management as above -patient does not want systemic anticoagulation (6) Heterozygous factor V Leiden mutation: -No prior history of DVT, no DVT on this admission (7) Bilateral lower leg cellulitis: Bilateral Lower extremity edema -Bilateral lower extremity redness started 2 days ago prior to admission, initially started on left leg and spreading to right -There is no sonographic evidence of deep venous thrombosis identified in the right or left lower extremity on LOWER EXTREMITY ULTRASOUND. -Allergy to penicillin was noted and patient started on oral doxycycline 100 mg BID on admission, continue antibiotic -10/26/2019 labs: ESR elevated as 63, CRP elevated as 2.03 , procalcitonin normal -blood culture no growth to date -continue doxycycline, continue trial of Lasix, calamine lotion to the shins to help with itching (8) GERD (gastroesophageal reflux disease): -pantoprazole twice a day (9) Prediabetes: -HbA1c 5.9 04/10/2019 -HbA1c 6.2 on this admission, management when follow up with primary care doctor (10) HTN (hypertension): -on lisinopril (11) DVT prophylaxis: Lovenox 40 mg daily as a DVT prophylaxis dosing while inpatient Total Time Total Time Spent Total Time Spent (In Minutes): 40 minutes Total Time Includes: Examination of the Patient, Discharge Planning, Medication Reconciliation and Communication With Other Providers Discharge Plan Discharge Items Patient Disposition: Home - Self-Care Reason For Visit: CHEST PAIN Discharge Diagnosis: ATYPICAL CHEST PAIN GERD (gastroesophageal reflux disease) Hypoxia likely secondary to Obstructive Sleep Apnea, Chronic obstructive pulmonary disease, Tobacco Use Morbid obesity with BMI of 50.0-59.9 Prediabetes D-dimer elevated, history of Heterozygous factor V Leiden mutation Bilateral lower leg cellulitis Bilateral Lower extremity edema Condition on Discharge: Fair Activity: Per Instructions section Non-emergency contact: Primary Care Provider, Specialist and Land Leases And Rentals Manager Call non-emergency contact if: you have any medication questions Follow-up/Referrals: Juan Antonio Bertrand DO [Primary Care Provider] - Diet: Carb Consistent or DM2, Heart Healthy and Low Fat Addtl Attending Provider Instructions: discharge medication sent to [facility] [address], [place] [id number] upcoming appointments 10/31/2019 6:20 PM Provider Juan Antonio Bertrand DO Department [facility] 11/07/2019 3:20 PM Provider Rossana Asif DO Department Pulmonary Medicine, [facility] 12/19/2019 1:00 PM Provider Ayesha Kessler RDN Department Nutrition, [facility] Pending Studies at Discharge: No Stand-Alone Forms: My [facility] [employer], Smoking Cessation Medications and DC Order Prescriptions: New pantoprazole 40 mg Tablet,Delayed Release (Dr/Ec) 40 mg PO BID 30 Days Qty: 60 RF: 0 lisinopril 10 mg Tablet 10 mg PO DAILY 30 Days Qty: 30 RF: 0 metoprolol succinate 25 mg Tablet Extended Release 24 Hr 25 mg PO QAM 30 Days Qty: 30 RF: 0 amoxicillin-pot clavulanate [Augmentin] 875-125 mg Tablet 1 tab PO BIDM 12 Days Qty: 24 RF: 0 doxycycline hyclate 100 mg tablet 100 mg PO BID 12 Days Qty: 24 RF: 0 Caladryl 1-8 % Lotion 1 applic EXT DAILY PRN (Reason: itching) 14 Days Qty: 177 RF: 0 Continued ibuprofen 200 mg Tablet 200 mg PO Q6H PRN (Reason: Pain) RF: 0 lisinopril 10 mg Tablet 10 mg PO DAILY RF: 0 Flovent HFA 220 mcg/actuation Hfa Aerosol Inhaler 2 puff INHALATION BID RF: 0 albuterol sulfate 90 mcg/actuation Hfa Aerosol Inhaler 1 inh INHALATION QID PRN (Reason: Shortness Of Breath) RF: 0 Discontinued pantoprazole 20 mg Tablet,Delayed Release (Dr/Ec) 20 mg PO BID RF: 0 Discharge Orders: Discharge Order (Routine); Ordered 10/27/19 Ordered By: Mahendra Copeland/Other Patient Handouts: Prediabetes, Diabetes: Meal Planning, A1C Admission Data Admit Date/Time: 10/25/19 16:00 Attending Provider: Mahendra Lamas Admit Provider: Carla Christianson Primary Care Provider: Juan Antonio Bertrand Other Providers: Carla Christianson ; Ermias Bernstein ; Zurdo Ayala ; Uriah Gordon ; Carlitos Briceno ; MarkShemar sood ; Flavio Aguayo ; Jazmine Simms ; Dominique Adames ; Allan Smith ; Sangeeta Christiansen ; [facility]
[2019-10-27] MEDS ORDERED: AMOXICILLIN/CLAVULANATE 875 MG TAB PO SCH (21:00)
== END 2019-10-27 17:00 | disposition home or self-care (01) ==
LOC: ED 12:00 → INTOOBSV 16:00 → 2N 16:00 → SUATTDRO 16:00 → 2N 17:10

== ENCOUNTER 2024-10-01 23:23 | Observation (INO) ==
--- NOTE | 2024-10-01 23:34 | Emergency Department Note ---
History of Present Illness General Chief complaint: Cardiac Assessment Stated complaint: HIP PAIN, FOOT NUMB, CHEST PAIN, ?CLOT IN AORTA Time Seen by Provider: 10/01/24 23:25 History of Present Illness This is a 54-year-old male with significant past medical history of HTN, prediabetes, COPD, tobacco abuse, GERD, history of bipolar, history of seizure, morbid obesity, factor V Leiden heterozygote who presents to to the ER complaining of intermittent chest pain today with left lower leg pain. Symptoms have also been intermittent. EMS gave aspirin. Patient denies fever, chills, abdominal pain, dyspnea. He states sometimes the chest pain is worse with exertion. Nothing makes it better. Home Medications Medication Instructions Recorded Confirmed Type furosemide 40 mg tablet 40 mg PO QAM 08/26/20 10/02/24 History ibuprofen 800 mg tablet 800 mg PO TID PRN Pain 08/26/20 10/02/24 History spironolactone 25 mg tablet 12.5 mg PO DAILY 08/26/20 10/02/24 History lisinopril 10 mg tablet 10 mg PO DAILY 10/26/20 10/02/24 History albuterol sulfate 2.5 mg/3 mL 2.5 mg inhalation Q4H PRN Wheezing 10/02/24 10/02/24 History (0.083 %) solution for nebulization atorvastatin 10 mg tablet 10 mg PO DAILY 10/02/24 10/02/24 History divalproex 500 mg tablet,extended 500 mg PO DAILY 10/02/24 10/02/24 History release 24 hr (Depakote ER) fluticasone fur. 100 mcg-umeclid 1 inh inhalation QAM 10/02/24 10/02/24 History 62.5 mcg-vilant 25 mcg inhalat.powder (Trelegy Ellipta) gabapentin 300 mg capsule 300 mg PO TID 10/02/24 10/02/24 History metformin 500 mg tablet,extended 500 mg PO QAM 10/02/24 10/02/24 History release 24 hr awfljunt-zmjgjicbo-cmpogrss 3.5 1 drp ophthalmic (eye) TID 10/02/24 10/02/24 History mg/mL-10,000 unit/mL-0.1% eye drops nicotine 21 mg/24 hr daily 1 patch transdermal DAILY 10/02/24 10/02/24 History transdermal patch pantoprazole 20 mg tablet,delayed 20 mg PO BID 10/02/24 10/02/24 History release semaglutide (weight loss) 0.25 0.25 mg subcut WK 10/02/24 10/02/24 History mg/0.5 mL subcutaneous pen injector (Wegovy) triamcinolone acetonide 0.05 % 1 applic topical BID PRN 10/02/24 10/02/24 History topical ointment DERMATITIS NEEDED ziprasidone HCl 20 mg capsule 20 mg PO BIDM 10/02/24 10/02/24 History Allergies Allergy/AdvReac Type Severity Reaction Status Date / Time aspirin Allergy Intermediate SWELLING Verified 10/02/24 00:34 Iodinated Contrast Media AdvReac Severe Seizure Verified 10/02/24 00:34 Past Med/Surg History Problem List (Updated 10/02/24 @ 01:26 by Shaniqua Whitman PA-C) Chest pain (Acute) Obesity hypoventilation syndrome Hypercapnic respiratory failure Sinus tachycardia Bilateral lower extremity edema Bilateral lower leg cellulitis DVT prophylaxis Morbid obesity with BMI of 50.0-59.9, adult GERD (gastroesophageal reflux disease) Bipolar disorder COPD (chronic obstructive pulmonary disease) (Acute) Heterozygous factor V Leiden mutation HTN (hypertension) Prediabetes Hypoxia (Acute) Chest pain (Acute) D-dimer, elevated (Acute) Medical History (Updated 10/02/24 @ 01:26 by Shaniqua Whitman PA-C) History of seizure As child Tobacco abuse Surgical History History of tonsillectomy and adenoidectomy History of hernia repair History of facial surgery Reconstruction after dog bite Family History Mother Deep vein thrombosis Factor V Leiden Brother Factor V Leiden Father Seizure disorder Social History Smoking Status: Current every day smoker Tobacco Type: Cigarettes packs per day: 1; Second Hand Exposure: No; Do You Dip or Chew Tobacco: No; Hx Alcohol Use: No Hx Substance Use: No Preferred Language: Burmese Communication Ability: Effective Closer On Required: No Beliefs That Will Affect Care: None Current Living Situation: Significant Other current occupational status: disabled Feels Safe at Home: Yes Assistive Devices: Oxygen - Continuous Review of Systems A total of 10 systems reviewed and were otherwise negative Physical Exam Vital Signs Vital Signs - 24 hr 10/01/24 23:28 10/01/24 23:31 10/01/24 23:41 Temperature 36.5 C Temperature Source Oral Pulse Rate 91 H 90 Respiratory Rate 20 Respiratory Effort / Characteristics Non-Labored Spontaneous Respiratory Depth Normal Respiratory Pattern Regular Blood Pressure 134/75 Blood Pressure Mean 94 Blood Pressure Position Sitting Pulse Oximetry 98 97 Oxygen Delivery Method Room Air Room Air Sepsis Recent Fever Within 48 Hours No Sepsis New/Unexplained Change in Mental Status N/A Sepsis Action Taken by Nursing No Action Required 10/01/24 23:41 Temperature Temperature Source Pulse Rate Respiratory Rate Respiratory Effort / Characteristics Respiratory Depth Respiratory Pattern Blood Pressure Blood Pressure Mean Blood Pressure Position Pulse Oximetry Oxygen Delivery Method Room Air Sepsis Recent Fever Within 48 Hours Sepsis New/Unexplained Change in Mental Status Sepsis Action Taken by Nursing VITALS: Vitals are noted on the nurse's note and reviewed by myself. Vital signs stable. GENERAL: White male, in no acute distress, nondiaphoretic, well-developed well- nourished. SKIN: Capillary reflex less than 2 seconds. HEENT: Normocephalic. PERRLA. EOMI. Nares patent. Mucous membranes moist. Neck is supple without nuchal rigidity. HEART: Regular rate and rhythm LUNGS: Clear to auscultation bilaterally without wheezes, rales or rhonchi. No retractions or accessory muscle use. ABDOMEN: Positive bowel sounds x 4. Normal tympanic percussion. Soft, nontender, without masses or organomegaly. Gutierrez sign negative. No guarding or rebound tenderness. no CVA tenderness MUSCULOSKELETAL: No gross musculoskeletal defects. No calf tenderness bilateral NEURO: Patient was alert and oriented to person place and time. No focal neurological deficits. Course Administered Medications Discontinued Medications Acetaminophen (Ofirmev) 1,000 mg in 100 mls @ 400 mls/hr IV NOW STA Stop: 10/01/24 23:43 Last Admin: 10/02/24 02:12 Dose: Not Given Documented By: Medical Decision Making Medical Records Attestation: I reviewed the patient's medical records. Home Medications Current Medication List: was personally reviewed by me Laboratory Data Attestation: I reviewed the patient's lab results. 10/01/24 23:37 10/01/24 23:37 Lab Results 10/01/24 Range/Units 23:37 WBC 11.11 H (4.8-10.8) K/ul RBC 4.42 L (4.70-6.10) M/uL Hgb 14.0 (14.0-18.0) g/dl Hct 42.7 (42.0-52.0) % MCV 96.6 (80.0-100.0) fL MCH 31.7 (25.0-34.0) pg MCHC 32.8 (32.0-36.0) g/dL RDW Std Deviation 50.2 H (36.4-46.3) fL RDW Coeff of Sallie 14.3 (11.5-14.5) % Plt Count 206 (130-400) K/uL MPV 11.7 (9.4-12.4) fL Immature Gran % (Auto) 0.3 % Neut % (Auto) 55.3 % Lymph % (Auto) 37.2 % [place] % (Auto) 4.5 % Eos % (Auto) 2.2 % Baso % (Auto) 0.5 % Neut # (Auto) 6.15 (1.40-6.50) K/uL Lymph # (Auto) 4.13 H (1.20-3.40) K/uL [place] # (Auto) 0.50 (0.11-0.59) K/uL Eos # (Auto) 0.24 (0.00-0.50) K/uL Baso # (Auto) 0.06 (0.00-0.20) K/uL Immature Gran # (Auto) 0.03 (0.01-0.20) K/uL APTT 27 (21-31) Seconds PTT Ratio 1.0 D-Dimer 2070 H* (0-500) ug/L FEU Sodium 139 (136-145) mmol/L Potassium 4.0 (3.5-5.1) mmol/L Chloride 101 (98-107) mmol/L Carbon Dioxide 31 (21-32) mmol/L Anion Gap 7 (3-11) BUN 7 (6-23) mg/dl Creatinine 0.56 L (0.6-1.4) mg/dl Est Cr Clr Drug Dosing 231.8 ml/min eGFR 117.86 BUN/Creatinine Ratio 12.5 (10-20) Glucose 155 H (70-99(Fasting)) mg/dl Calcium 9.3 (8.6-10.3) mg/dl Magnesium 1.7 (1.7-2.4) mg/dl Total Bilirubin 0.4 (0.2-1.0) mg/dl AST 18 (13-39) U/L ALT 18 (7-52) U/L Alkaline Phosphatase 71 (34-104) U/L Troponin I High Sens 4.6 (0-20) pg/ml B-Natriuretic Peptide 15 (0-100) pg/ml Total Protein 7.1 (6.0-8.3) gm/dl Albumin 3.6 (3.4-5.0) gm/dl Globulin 3.5 (2.5-4.0) gm/dl Albumin/Globulin Ratio 1.0 (0.9-2) Lipase 29 (11-82) U/L Imaging Data Attestation: I personally reviewed and interpreted this imaging study as follows: Radiologist's Impression: Chest X-Ray 10/01/24 23:29 EXAM: XR chest 1V portable CLINICAL HISTORY: Chest pain, nonspecific TECHNIQUE: An X-ray image of the chest is obtained in AP projection. COMPARISON: prior 09/11/2021 FINDINGS: Pulmonary Parenchyma: Lungs are clear bilaterally. No evidence of consolidation, collapse, or focal opacities. No pulmonary nodules are identified. No evidence of pleural effusion or pleural thickening. Heart and Mediastinum: Heart size and shape are normal. No mediastinal widening or masses. No hilar or mediastinal lymphadenopathy. Bony Thorax: Bony thorax appears intact without fractures or deformities. Soft Tissues: Soft tissues overlying the chest wall are unremarkable. IMPRESSION: 1. Normal chest X-ray. No acute cardiopulmonary abnormalities are identified. 2. No time interval changes. Electronically signed by Heriberto Zepeda 10-02-2024 02:08 AM Venous Doppler Study 10/02/24 00:00 EXAM: US venous doppler LE CLINICAL HISTORY: swelling, DVT. TECHNIQUE: Ultrasound examination of bilateral lower extremity veins was performed in real time and duplex. One or more of the following were performed- spectral analysis, resistive index, waveform analysis, and pulsed Doppler. COMPARISON: 10/25/2019, US venous doppler of left leg FINDINGS: Limited visualization of calf vessels Normal phasic, non-pulsatile and spontaneous flow is noted in bilateral saphenofemoral junction, bilateral common femoral, superficial femoral, popliteal, anterior, posterior tibial and peroneal veins. Visualized veins of both lower extremities demonstrate normal compressibility. No sonographic evidence of acute deep vein thrombosis (DVT) is detected in the visualized veins of both lower extremities. Compression and Augmentation: All evaluated veins compress fully with applied transducer pressure. Augmentation of venous flow is noted with distal compression. Additional Findings: No evidence of intraluminal thrombus. A lymph node is identified in left inguinal region per visualized image: 290(29/50) Minimal soft tissue edema in both lower limbs IMPRESSION: 1. No sonographic evidence of acute DVT detected in the bilateral common femoral, superficial femoral, popliteal, anterior and posterior tibial and peroneal veins, at the time of examination. 2. Minimal soft tissue edema in both lower limbs, possibly minimal in prior examination of left lower limb as well. 3. A lymph node in left inguinal region, seen in the current examination. 4. No other interval change is seen in doppler examination of left leg. Disclaimer: DVT could be missed early in the disease when clot burden is minimal. For patients with moderate and high pretest probability of DVT and negative ultrasound, the [employer] clinical guidelines recommend testing with a D-dimer assay or repeat ultrasound in 5-7 days. If symptoms worsen, the Society of radiologists in ultrasound recommends repeating ultrasound even earlier. Electronically signed by Heriberto Zepeda 10-02-2024 01:39 AM MDM Narrative Prior records/ancillary studies reviewed. Triage Nursing notes reviewed. Additional history obtained from EMS. The patient's history was concerning for chest pain. Differential diagnosis: Etiologies such as cardiac ischemia, aortic dissection, pulmonary embolism, pneumonia, pneumothorax, musculoskeletal, infections, pericarditis, myocarditis, esophageal rupture, gastrointestinal, as well as others were entertained. Physical examination: As above. ER treatment provided: An order was placed for continuous cardiac monitoring. The monitor shows a rate of 60-100 with a sinus rhythm per my interpretation. Patient was observed On reassessment the patient felt better. Diagnostic interpretation by me: The electrocardiogram was ordered for chest pain EKG: Normal sinus, no acute ST-T wave changes, incomplete right bundle, Q waves in inferior leads. Impression normal sinus rhythm rate of 87 incomplete right bundle branch block independently interpreted by myself and similar to prior EKG from 2020 The labs Independently Interpreted by myself revealed negative troponin. Hyperglycemia without DKA Imaging studies: Imaging was reviewed and read by radiology HEART SCORE: Hx: high/mod/low suspicion: 1 ECG: ST depression/nonspecific changes/normal: 0 Age: Greater than 65/45-64/less than 45: 1 Risk factors: (Hypertension, hyperlipidemia, diabetes, coronary disease, tobacco use, cocaine use): 2 Troponin: Greater than 2 times normal limits/1-2 times normal limits/normal: 0 Total: 4 Consultation: A consultation was placed with the hospitalist. The case was discussed and diagnostics were reviewed. The patient was evaluated in the ER for further treatment. Exam and history seem consistent with chest pain with risk factors for heart disease. First troponin was negative. Patient also has risk factors for PE. He is unable to do a CTA. He has factor V and continues to smoke. Medicine was were made aware for possible V/Q imaging in the morning. Heart score is moderate. First troponin is negative. Patient is agreeable treatment plan of admission. Medicine was consulted and the case is discussed. He will be evaluated for admission. By the evaluation outlined above emergent etiologies such as aortic dissection, pneumonia, pneumothorax, infections, pericarditis, myocarditis, gastrointestinal, as well as others were deemed relatively unlikely. The pt informed about the findings as listed above. All questions were answered and pleased with the treatment. The chart was completed utilizing [employer] Speech voice recognition software. Grammatical errors, random word insertions, pronoun errors, and incomplete sentences are an occassional consequence of this system due to software limitations, ambient noise, and hardware issues. Any formal questions or concerns about the content, text, or information contained within the body of this dictation should be directly addressed to the physician insurance assistant for clarification. Impression & Plan Chest pain Discharge Plan Visit Data Chief Complaint: Cardiac Assessment Stated Complaint: HIP PAIN, FOOT NUMB, CHEST PAIN, ?CLOT IN AORTA ED Provider: Lavern Su ED Midlevel Provider: Shaniqua Whitman Discharge Problem: Chest pain Patient Disposition: Being Evaluated by Hospitalist Condition: Good Discharge Problem: Chest pain Qualifiers: Chest pain type: unspecified Qualified Code(s): R07.9 - Chest pain, unspecified
[2024-10-01 23:40] VITALS: TEMP 97.7
[2024-10-01 23:54] LABS: Hematocrit (blood only) 42.7 % (42.0-52.0); Hemoglobin 14.0 g/dl (14.0-18.0); Immature Granulocytes # (auto) 0.03 K/uL (0.01-0.20); Immature Granulocytes % (auto) 0.3 %; Mean Corpuscular Hemoglobin 31.7 pg (25.0-34.0); Mean Corpuscular Volume 96.6 fL (80.0-100.0); Platelet Count 206 K/uL (130-400); RDW Standard Deviation 50.2 fL (36.4-46.3); Red Blood Count 4.42 M/uL (4.70-6.10); White Blood Count 11.11 K/ul (4.8-10.8)
[2024-10-02 00:13] LABS: Alanine Aminotransferase 18.0 U/L (7-52); Albumin Globulin Ratio 1.0 (0.9-2); Alkaline Phosphatase 71.0 U/L (34-104); Anion Gap 7.0 (3-11); Bilirubin,Total 0.4 mg/dl (0.2-1.0); Blood Urea Nitrogen 7.0 mg/dl (6-23); Calcium 9.3 mg/dl (8.6-10.3); Carbon Dioxide 31.0 mmol/L (21-32); Chloride 101.0 mmol/L (98-107); Creatinine Clr Calc Pharmacy 231.8 ml/min; Globulin 3.5 gm/dl (2.5-4.0); Glucose 155.0 mg/dl (70-99(Fasting)); Lipase 29.0 U/L (11-82); Potassium 4.0 mmol/L (3.5-5.1); Sodium 139.0 mmol/L (136-145); Total Protein 7.1 gm/dl (6.0-8.3)
--- NOTE | 2024-10-02 01:39 | Ultrasound Report ---
EXAM: US venous doppler LE CLINICAL HISTORY: swelling, DVT. TECHNIQUE: Ultrasound examination of bilateral lower extremity veins was performed in real time and duplex. One or more of the following were performed- spectral analysis, resistive index, waveform analysis, and pulsed Doppler. COMPARISON: 10/25/2019, US venous doppler of left leg FINDINGS: Limited visualization of calf vessels Normal phasic, non-pulsatile and spontaneous flow is noted in bilateral saphenofemoral junction, bilateral common femoral, superficial femoral, popliteal, anterior, posterior tibial and peroneal veins. Visualized veins of both lower extremities demonstrate normal compressibility. No sonographic evidence of acute deep vein thrombosis (DVT) is detected in the visualized veins of both lower extremities. Compression and Augmentation: All evaluated veins compress fully with applied transducer pressure. Augmentation of venous flow is noted with distal compression. Additional Findings: No evidence of intraluminal thrombus. A lymph node is identified in left inguinal region per visualized image: 290(/50) Minimal soft tissue edema in both lower limbs IMPRESSION: 1. No sonographic evidence of acute DVT detected in the bilateral common femoral, superficial femoral, popliteal, anterior and posterior tibial and peroneal veins, at the time of examination. 2. Minimal soft tissue edema in both lower limbs, possibly minimal in prior examination of left lower limb as well. 3. A lymph node in left inguinal region, seen in the current examination. 4. No other interval change is seen in doppler examination of left leg. Disclaimer: DVT could be missed early in the disease when clot burden is minimal. For patients with moderate and high pretest probability of DVT and negative ultrasound, the [employer] clinical guidelines recommend testing with a D-dimer assay or repeat ultrasound in 5-7 days. If symptoms worsen, the Society of radiologists in ultrasound recommends repeating ultrasound even earlier. Electronically signed by Heriberto Zepeda 10-02-2024 01:39 AM
[2024-10-02 01:58] LABS: Magnesium 1.7 mg/dl (1.7-2.4)
[2024-10-02 01:59] LABS: Partial Thromboplastin Time 27 Seconds (21-31)
--- NOTE | 2024-10-02 02:09 | XRay Report ---
EXAM: XR chest 1V portable CLINICAL HISTORY: Chest pain, nonspecific TECHNIQUE: An X-ray image of the chest is obtained in AP projection. COMPARISON: prior 09/11/2021 FINDINGS: Pulmonary Parenchyma: Lungs are clear bilaterally. No evidence of consolidation, collapse, or focal opacities. No pulmonary nodules are identified. No evidence of pleural effusion or pleural thickening. Heart and Mediastinum: Heart size and shape are normal. No mediastinal widening or masses. No hilar or mediastinal lymphadenopathy. Bony Thorax: Bony thorax appears intact without fractures or deformities. Soft Tissues: Soft tissues overlying the chest wall are unremarkable. IMPRESSION: 1. Normal chest X-ray. No acute cardiopulmonary abnormalities are identified. 2. No time interval changes. Electronically signed by Heriberto Zepeda 10-02-2024 02:08 AM
[2024-10-02] MEDS: ACETAMINOPHEN 1,000 MG/100 ML VIAL IV STA (02:12)
--- NOTE | 2024-10-02 02:17 | History & Physical Report ---
Date of Service October 02, 2024 Assessment & Plan (1) Chest pain: Plan: Assessment and plan below following discussion of case with ED provider and reviewing patient history/pertinent normal/abnormal diagnostic test results. Chest pain PE (history factor V Leiden with abnormal dimer) versus ACS (hx PAD, poorly controlled DM) Worsening LLE pain suggestive of rest claudication, history PAD, documented on outpatient arterial Dopplers. chronic diastolic heart failure (EF 55%, TTE 2023), patient euvolemic hypertension, stable hyperlipidemia, on statin Rx asthma/COPD, chronic wheezing symptoms OHS on BiPAP DM2 on oral medications, suboptimal control as of recent hemoglobin A1c of 8.7 last July 2024 mood disorder, stable ongoing tobacco abuse OBS Admit to PCU VQ scan to rule out PE IV heparin for thromboembolic prophylaxis until PE ruled out Follow troponin Cardiology consult to evaluate patient chest pain if PE workup unremarkable given patient risk factors for ischemic heart disease N.p.o. in anticipation of ischemic workup MRA of the abdomen and pelvis with and without contrast to evaluate aorto- occlusive disease Vascular surgery consult re: worsening LLE pain, PAD Basal bolus insulin adjusted for n.p.o. status, ISS BG goal 110-140 Nicotine patch as needed DVT prophylaxis. IV heparin Full code Patient partner requesting updates providers. Rosetta Li, contact #[phone]. Text document was generated using [employer] voice recognition software. It may contain grammatical or spelling errors. Kindly contact undersigned for clarification of any documentation item in question. History of Present Illness Chief Complaint: Chest pain, worsening left lower leg pain Primary Care Provider: Jon Qureshi MD History obtained from patient, family, and records. Medical history significant for chronic diastolic heart failure (EF 55%, TTE 2023), PAD, hypertension, hyperlipidemia, patient patient asthma/COPD, OHS on BiPAP, DM2 on oral medications, history of factor V Leiden mutation, GERD, mood disorder, memory loss, learning disorder as per records, ongoing tobacco abuse. Last 2019 for atypical chest pain. Patient has been having worsening bilateral LE pain more on the left for a few months now. No unusual back pain. Pain actually better on ambulation. Outpatient lumbar MRI from July 2024 showed 1. Severe multifactorial spinal canal stenosis at L4-L5 with severe left and moderate right neural foraminal narrowing. 2. Moderate spinal canal stenosis at L2-L3 with mild right neural foraminal narrowing. 3. Mild spinal canal stenosis at L1-L2 and L3-L4. 4. Central disc protrusion at L5-S1 contacts the bilateral transiting S1 nerve roots; moderate/severe bilateral foraminal narrowing at this level. Outpatient LE vascular study from July 2024 showed Ankle brachial index (SIMON) at rest is 0.31 on the right and 0.17 on the left. For the right lower extremity: Lower extremity doppler evaluation at rest shows evidence of severe arterial occlusive disease. Occlusive disease is most likely located in the aorto-iliac location. For the left lower extremity: Lower extremity doppler evaluation at rest shows evidence of severe arterial occlusive disease. Occlusive disease is most likely located in the aorto-iliac location. Additional disease is located in the femoropopliteal and tibial segments. [facility] Vascular surgery recommended outpatient MRA with and without contrast of the abdomen and pelvis to evaluate possible aortoiliac occlusive disease given iodine contrast allergy. Patient experienced achy left-sided chest pain yesterday while watching [employer] donna. Nonpleuritic, nonradiating. No SOB. No prior episodes. Some relief following aspirin intake at home. Patient also noted worsening of left lower leg pain. Patient currently comfortable at the ER. Medical History as above Surgical History : Tonsillectomy/adenoidectomy, hernia repair Family History : Blood clots, seizures, asthma, heart disease Personal/Social history : 1 pack daily, no EtOH intake, disabled Allergies Allergy/AdvReac Type Severity Reaction Status Date / Time Iodinated Contrast Media AdvReac Severe Seizure Verified 10/02/24 00:34 Home Medications Medication Instructions Recorded Confirmed Type furosemide 40 mg tablet 40 mg PO QAM 08/26/20 10/02/24 History ibuprofen 800 mg tablet 800 mg PO TID PRN Pain 08/26/20 10/02/24 History spironolactone 25 mg tablet 12.5 mg PO DAILY 08/26/20 10/02/24 History lisinopril 10 mg tablet 10 mg PO DAILY 10/26/20 10/02/24 History albuterol sulfate 2.5 mg/3 mL 2.5 mg inhalation Q4H PRN Wheezing 10/02/24 10/02/24 History (0.083 %) solution for nebulization atorvastatin 10 mg tablet 10 mg PO DAILY 10/02/24 10/02/24 History divalproex 500 mg tablet,extended 500 mg PO DAILY 10/02/24 10/02/24 History release 24 hr (Depakote ER) fluticasone fur. 100 mcg-umeclid 1 inh inhalation QAM 10/02/24 10/02/24 History 62.5 mcg-vilant 25 mcg inhalat.powder (Trelegy Ellipta) gabapentin 300 mg capsule 300 mg PO TID 10/02/24 10/02/24 History metformin 500 mg tablet,extended 500 mg PO QAM 10/02/24 10/02/24 History release 24 hr emzqzico-fmkhyumru-pvhvqnvg 3.5 1 drp ophthalmic (eye) TID 10/02/24 10/02/24 History mg/mL-10,000 unit/mL-0.1% eye drops nicotine 21 mg/24 hr daily 1 patch transdermal DAILY 10/02/24 10/02/24 History transdermal patch pantoprazole 20 mg tablet,delayed 20 mg PO BID 10/02/24 10/02/24 History release semaglutide (weight loss) 0.25 0.25 mg subcut WK 10/02/24 10/02/24 History mg/0.5 mL subcutaneous pen injector (Wegovy) triamcinolone acetonide 0.05 % 1 applic topical BID PRN 10/02/24 10/02/24 History topical ointment DERMATITIS NEEDED ziprasidone HCl 20 mg capsule 20 mg PO BIDM 10/02/24 10/02/24 History Past Med/Surg History Problem List (Updated 10/02/24 @ 01:26 by Shaniqua Whitman PA-C) Chest pain (Acute) Obesity hypoventilation syndrome Hypercapnic respiratory failure Sinus tachycardia Bilateral lower extremity edema Bilateral lower leg cellulitis DVT prophylaxis Morbid obesity with BMI of 50.0-59.9, adult GERD (gastroesophageal reflux disease) Bipolar disorder COPD (chronic obstructive pulmonary disease) (Acute) Heterozygous factor V Leiden mutation HTN (hypertension) Prediabetes Hypoxia (Acute) Chest pain (Acute) D-dimer, elevated (Acute) Medical History (Updated 10/02/24 @ 01:26 by Shaniqua Whitman PA-C) History of seizure As child Tobacco abuse Surgical History History of tonsillectomy and adenoidectomy History of hernia repair History of facial surgery Reconstruction after dog bite Family History Mother Deep vein thrombosis Factor V Leiden Brother Factor V Leiden Father Seizure disorder Social History Smoking Status: Current every day smoker Tobacco Type: Cigarettes packs per day: 1; Second Hand Exposure: No; Do You Dip or Chew Tobacco: No; Hx Alcohol Use: No Hx Substance Use: No Preferred Language: German Communication Ability: Effective 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 Beliefs That Will Affect Care: None Current Living Situation: Significant Other current occupational status: disabled Feels Safe at Home: Yes Assistive Devices: Oxygen - Continuous Review of Systems Review of Systems: As per HPI, all other systems reviewed and negative Physical Exam Physical Exam: GENERAL: Comfortable, pleasant, morbidly obese, no respiratory distress SKIN: Normal color, warm HEENT: [place] palpebral conjunctivae, no ptosis, dry buccal mucosa NECK : Supple, short neck, no tenderness CHEST : Decreased breath sounds, occasional expiratory wheezes, no tenderness HEART : RRR, no obvious murmurs ABDOMEN: Some distention, nontender EXTREMITIES : Minimal LE swelling, no LE tenderness, palpable pulses, no other conspicuous deformities noted NEUROLOGIC : Coherent, no facial asymmetry, no other gross focality Results & Data Results & Data Vital Signs (Past 12 Hours) Vital Signs Temp Pulse Resp BP Pulse Ox O2 Del Method 10/01/24 23:41 Room Air 10/01/24 23:41 97 Room Air 10/01/24 23:31 36.5 C 90 20 134/75 98 Room Air 10/01/24 23:28 91 H Laboratory Results Laboratory Results WBC 11.11 K/ul (4.8-10.8) H 10/01/24 23:37 RBC 4.42 M/uL (4.70-6.10) L 10/01/24 23:37 Hgb 14.0 g/dl (14.0-18.0) 10/01/24 23:37 Hct 42.7 % (42.0-52.0) 10/01/24 23:37 MCV 96.6 fL (80.0-100.0) 10/01/24 23:37 MCH 31.7 pg (25.0-34.0) 10/01/24 23:37 MCHC 32.8 g/dL (32.0-36.0) 10/01/24 23:37 RDW Std Deviation 50.2 fL (36.4-46.3) H 10/01/24 23:37 RDW Coeff of Sallie 14.3 % (11.5-14.5) 10/01/24 23:37 Plt Count 206 K/uL (130-400) 10/01/24 23:37 MPV 11.7 fL (9.4-12.4) 10/01/24 23:37 Immature Gran % (Auto) 0.3 % 10/01/24 23:37 Neut % (Auto) 55.3 % 10/01/24 23:37 Lymph % (Auto) 37.2 % 10/01/24 23:37 [place] % (Auto) 4.5 % 10/01/24 23:37 Eos % (Auto) 2.2 % 10/01/24 23:37 Baso % (Auto) 0.5 % 10/01/24 23:37 Neut # (Auto) 6.15 K/uL (1.40-6.50) 10/01/24 23:37 Lymph # (Auto) 4.13 K/uL (1.20-3.40) H 10/01/24 23:37 [place] # (Auto) 0.50 K/uL (0.11-0.59) 10/01/24 23:37 Eos # (Auto) 0.24 K/uL (0.00-0.50) 10/01/24 23:37 Baso # (Auto) 0.06 K/uL (0.00-0.20) 10/01/24 23:37 Immature Gran # (Auto) 0.03 K/uL (0.01-0.20) 10/01/24 23:37 APTT 27 Seconds (21-31) 10/01/24 23:37 PTT Ratio 1.0 10/01/24 23:37 D-Dimer 2070 ug/L FEU (0-500) H* 10/01/24 23:37 Sodium 139 mmol/L (136-145) 10/01/24 23:37 Potassium 4.0 mmol/L (3.5-5.1) 10/01/24 23:37 Chloride 101 mmol/L (98-107) 10/01/24 23:37 Carbon Dioxide 31 mmol/L (21-32) 10/01/24 23:37 Anion Gap 7 (3-11) 10/01/24 23:37 BUN 7 mg/dl (6-23) 10/01/24 23:37 Creatinine 0.56 mg/dl (0.6-1.4) L 10/01/24 23:37 Est Cr Clr Drug Dosing 231.8 ml/min 10/01/24 23:37 eGFR 117.86 10/01/24 23:37 BUN/Creatinine Ratio 12.5 (10-20) 10/01/24 23:37 Glucose 155 mg/dl (70-99(Fasting)) H 10/01/24 23:37 Calcium 9.3 mg/dl (8.6-10.3) 10/01/24 23:37 Magnesium 1.7 mg/dl (1.7-2.4) 10/01/24 23:37 Total Bilirubin 0.4 mg/dl (0.2-1.0) 10/01/24 23:37 AST 18 U/L (13-39) 10/01/24 23:37 ALT 18 U/L (7-52) 10/01/24 23:37 Alkaline Phosphatase 71 U/L (34-104) 10/01/24 23:37 Troponin I High Sens 4.6 pg/ml (0-20) 10/01/24 23:37 B-Natriuretic Peptide 15 pg/ml (0-100) 10/01/24 23:37 Total Protein 7.1 gm/dl (6.0-8.3) 10/01/24 23:37 Albumin 3.6 gm/dl (3.4-5.0) 10/01/24 23:37 Globulin 3.5 gm/dl (2.5-4.0) 10/01/24 23:37 Albumin/Globulin Ratio 1.0 (0.9-2) 10/01/24 23:37 Lipase 29 U/L (11-82) 10/01/24 23:37 Impressions Chest X-Ray 10/01/24 23:29 EXAM: XR chest 1V portable CLINICAL HISTORY: Chest pain, nonspecific TECHNIQUE: An X-ray image of the chest is obtained in AP projection. COMPARISON: prior 09/11/2021 FINDINGS: Pulmonary Parenchyma: Lungs are clear bilaterally. No evidence of consolidation, collapse, or focal opacities. No pulmonary nodules are identified. No evidence of pleural effusion or pleural thickening. Heart and Mediastinum: Heart size and shape are normal. No mediastinal widening or masses. No hilar or mediastinal lymphadenopathy. Bony Thorax: Bony thorax appears intact without fractures or deformities. Soft Tissues: Soft tissues overlying the chest wall are unremarkable. IMPRESSION: 1. Normal chest X-ray. No acute cardiopulmonary abnormalities are identified. 2. No time interval changes. Electronically signed by Heriberto Zepeda 10-02-2024 02:08 AM Venous Doppler Study 10/02/24 00:00 EXAM: US venous doppler LE CLINICAL HISTORY: swelling, DVT. TECHNIQUE: Ultrasound examination of bilateral lower extremity veins was performed in real time and duplex. One or more of the following were performed- spectral analysis, resistive index, waveform analysis, and pulsed Doppler. COMPARISON: 10/25/2019, US venous doppler of left leg FINDINGS: Limited visualization of calf vessels Normal phasic, non-pulsatile and spontaneous flow is noted in bilateral saphenofemoral junction, bilateral common femoral, superficial femoral, popliteal, anterior, posterior tibial and peroneal veins. Visualized veins of both lower extremities demonstrate normal compressibility. No sonographic evidence of acute deep vein thrombosis (DVT) is detected in the visualized veins of both lower extremities. Compression and Augmentation: All evaluated veins compress fully with applied transducer pressure. Augmentation of venous flow is noted with distal compression. Additional Findings: No evidence of intraluminal thrombus. A lymph node is identified in left inguinal region per visualized image: 290(29/50) Minimal soft tissue edema in both lower limbs IMPRESSION: 1. No sonographic evidence of acute DVT detected in the bilateral common femoral, superficial femoral, popliteal, anterior and posterior tibial and peroneal veins, at the time of examination. 2. Minimal soft tissue edema in both lower limbs, possibly minimal in prior examination of left lower limb as well. 3. A lymph node in left inguinal region, seen in the current examination. 4. No other interval change is seen in doppler examination of left leg. Disclaimer: DVT could be missed early in the disease when clot burden is minimal. For patients with moderate and high pretest probability of DVT and negative ultrasound, the [employer] clinical guidelines recommend testing with a D-dimer assay or repeat ultrasound in 5-7 days. If symptoms worsen, the Society of radiologists in ultrasound recommends repeating ultrasound even earlier. Electronically signed by Heriberto Zeepda 10-02-2024 01:39 AM Diagnostic Findings EKG as per my interpretation :Rate 90, NSR, normal axis, incomplete RBBB, inferior infarct, T wave abnormality septal leads (1) Chest pain Chest pain type: unspecified Qualified Code(s): R07.9 - Chest pain, unspecified
[2024-10-02] MEDS ORDERED: Heparin IV Adult Wt-Based Standard *NO* INITIAL Bolus Protocol IV STA (02:20)
[2024-10-02] MEDS ORDERED: PROMETHAZINE 12.5 MG/50.5 ML BAG IV PRN (02:20)
[2024-10-02] MEDS ORDERED: MoRPHine SULFATE 4 MG/ML 1 ML CARP\\VIAL IV PRN ×2 (02:20→08:27)
[2024-10-02] MEDS ORDERED: CARBOHYDRATES FOR HYPOGLYCEMIA PO PRN (02:57)
[2024-10-02] MEDS ORDERED: GLUCOSE 40% GEL 15 GM TUBE PO PRN (02:57)
[2024-10-02] MEDS ORDERED: GLUCOSE 10 TAB/TUBE PO PRN (02:57)
[2024-10-02] MEDS ORDERED: DEXTROSE 50% 50 ML SYRINGE IV PRN (02:57)
[2024-10-02] MEDS ORDERED: GLUCAGON FOR INJ 1 MG VIAL SQ PRN (02:57)
[2024-10-02 03:00] LABS: Hematocrit (blood only) 42.0 % (42.0-52.0); Hemoglobin 14.0 g/dl (14.0-18.0); Mean Corpuscular Hemoglobin 32.0 pg (25.0-34.0); Mean Corpuscular Volume 96.1 fL (80.0-100.0); Platelet Count 197 K/uL (130-400); RDW Standard Deviation 50.3 fL (36.4-46.3); Red Blood Count 4.37 M/uL (4.70-6.10); White Blood Count 10.36 K/ul (4.8-10.8)
[2024-10-02 03:17] LABS: Anion Gap 9.0 (3-11); Blood Urea Nitrogen 8.0 mg/dl (6-23); Calcium 9.2 mg/dl (8.6-10.3); Carbon Dioxide 28.0 mmol/L (21-32); Chloride 102.0 mmol/L (98-107); Cholesterol 114.0 mg/dl (0-200); Creatinine Clr Calc Pharmacy 254.5 ml/min; Glucose 139.0 mg/dl (70-99(Fasting)); HDL Cholesterol 31.0 mg/dl; Potassium 3.6 mmol/L (3.5-5.1); Sodium 139.0 mmol/L (136-145); Triglycerides 165.0 mg/dl (0-150)
[2024-10-02 03:26] LABS: Immature Granulocytes # (auto) 0.01 K/uL (0.01-0.20); Immature Granulocytes % (auto) 0.1 %
[2024-10-02] MEDS: INSULIN ASPART PER UNIT CHARGE SC SCH (04:17)
[2024-10-02] MEDS: HEPARIN 25000 UNIT/500 ML D5W 25,000 UNITS/500 ML BAG IV SCH (04:18)
[2024-10-02] MEDS ORDERED: GABAPENTIN 300 MG CAP PO SCH (09:00)
[2024-10-02] MEDS ORDERED: NON-FORMULARY MEDICATION (Fluticasone-Umeclidin-Vilanter [Trelegy Ellipta] 100-62.5-25 mcg INH SCH (09:00)
[2024-10-02] MEDS: GADOBUTROL 65ML VIAL IV ONE (09:30)
[2024-10-02 10:28] VITALS: BP 114/61; RESP 16; O2SAT 96
--- NOTE | 2024-10-02 10:38 | Nuclear Medicine Report ---
NM pul perfusion CLINICAL HISTORY: cp, pls relay result to md once available RADIOPHARMACEUTICAL ADMINISTERED: 5.4 mCi technetium 99m MAA. COMPARISON STUDY: 10/25/2019 FINDINGS: There are small pleural-based perfusion defects at the left mid lung laterally, right upper lung laterally, and bilateral lung bases. No large perfusion defect seen. IMPRESSION: Intermediate probability of pulmonary embolism. ACT 112: Positive. There are findings on this exam that require communication between the performing entity and the patient following Patient Test Result Information Act ([place] Act 112) guidelines. Electronically signed by: Ermias Martin M.D. 10/02/2024 10:36 AM
[2024-10-02] MEDS: GABAPENTIN 100 MG CAP PO SCH (10:41)
[2024-10-02] MEDS: ASPIRIN 81 MG ECTAB PO SCH (10:43)
[2024-10-02] MEDS: LANTUS PER UNIT CHARGE SQ SCH (10:43)
[2024-10-02] MEDS: ATORVASTATIN 10 MG TAB PO SCH (10:44)
[2024-10-02] MEDS: UMECLIDINIUM/VILANTEROL 62.5/25MCG 7 PUFFS/INHALER INH SCH (10:45)
[2024-10-02] MEDS: FLUTICASONE FUROATE 100MCG 14 PUFFS/INHALER INH SCH (10:45)
[2024-10-02 11:06] LABS: ANTI-Xa, UFH(UnfractionatedHep 0.18 IU/ml (0.3-0.7)
--- NOTE | 2024-10-02 11:16 | Electrocardiogram Report ---
Test Reason : Blood Pressure : */* mmHG Vent. Rate : 87 BPM Atrial Rate : 87 BPM P-R Int : 148 ms QRS Dur : 100 ms QT Int : 390 ms P-R-T Axes : * -12 -13 degrees QTcB Int : 469 ms Normal sinus rhythm Incomplete right bundle branch block Inferior infarct , age undetermined Abnormal ECG When compared with ECG of 25-Oct-2020 19:54, T wave inversion now evident in Inferior leads Confirmed by Nicola Pardo ([id number]) on 10/02/2024 11:15:40 AM Referred By: REFERRED SELF Confirmed By: Nicola Pardo
[2024-10-02] MEDS: HEPARIN SOD (PORCINE) 1000 UNIT/ML IV ONE (13:07)
--- NOTE | 2024-10-02 13:13 | Communication Note ---
Date of Service: October 02, 2024 I saw Mr. Guillaume today. Went over the MRA findings of an infrarenal aortic occlusion. He has been seen by vascular surgery at [facility] for his vascular problems. Due to his need of an aortobifemoral bypass and his medical problems he believes that this should be addressed at diameter. Due to his medical conditions I totally agree that the best handled at a tertiary care center. I did discuss this with the hospitalist earlier in the day.
--- NOTE | 2024-10-02 13:14 | Magnetic Resonance Report ---
MR angio abdomen wo/w con, MR angio pelvis wo/w con CLINICAL HISTORY: pad COMPARISON STUDY: None FINDINGS: There is motion artifact. There is no abdominal aortic aneurysm. There is occlusion of the distal most aorta and the common iliac arteries bilaterally. There is reconstitution at the origins o f the external and internal iliac arteries bilaterally. There is mild diffuse narrowing of the left e xternal iliac artery. Otherwise the visualized arterial outflow is patent. Celiac, superior mesenteri c, and bilateral renal arteries are patent with no severe narrowing seen. Inferior mesenteric artery is not visualized, likely occluded. IMPRESSION: Occlusion of the distal aorta and common iliac arteries bilaterally. ACT 112: Positive. There are findings on this exam that require communication between the performing entity and the patient following Patient Test Result Information Act ([place] Act 112) guidelines. Electronically signed by: Ermias Martin M.D. 10/02/2024 1:12 PM
--- NOTE | 2024-10-02 15:15 | Discharge Summary ---
Discharge Summary Date of Service October 02, 2024 Principal Dx & Hospital Course #1 = Principal Diagnosis (1) Chest pain: Assessment and plan below following discussion of case with ED provider and reviewing patient history/pertinent normal/abnormal diagnostic test results. Chest pain PE (history factor V Leiden with abnormal dimer) versus ACS (hx PAD, poorly controlled DM) Worsening LLE pain suggestive of rest claudication, history PAD, documented on o utpatient arterial Dopplers. chronic diastolic heart failure (EF 55%, TTE 2023), patient euvolemic hypertension, stable hyperlipidemia, on statin Rx asthma/COPD, chronic wheezing symptoms OHS on BiPAP DM2 on oral medications, suboptimal control as of recent hemoglobin A1c of 8.7 last July 2024 mood disorder, stable ongoing tobacco abuse OBS Admit to PCU VQ scan to rule out PE IV heparin for thromboembolic prophylaxis until PE ruled out Follow troponin Cardiology consult to evaluate patient chest pain if PE workup unremarkable given patient risk factors for ischemic heart disease N.p.o. in anticipation of ischemic workup MRA of the abdomen and pelvis with and without contrast to evaluate aorto- occlusive disease Vascular surgery consult re: worsening LLE pain, PAD Basal bolus insulin adjusted for n.p.o. status, ISS BG goal 110-140 Nicotine patch as needed DVT prophylaxis. IV heparin Full code Patient partner requesting updates providers. Ms. Rosetta Li, contact #[phone]. Text document was generated using [employer] voice recognition software. It may contain grammatical or spelling errors. Kindly contact undersigned for clarification of any documentation item in question. Notes For Next Care Provider 54 yo male with pmhx of chronic diastolic heart failure (EF 55%, TTE 2023), PAD, hypertension, hyperlipidemia, patient patient asthma/COPD, OHS on BiPAP, DM2 on oral medications, history of factor V Leiden mutation, GERD, mood disorder, memory loss, learning disorder as per records, ongoing tobacco abuse presenting for LLE pain, admitted to medicine for uncontrolled pain. On medicine, vascular surgery consulted, MRI le performed with aortoiliac occlusions bilaterally. Vascular surgery recommended transfer to [facility], accepted for transfer. Medication Changes From Visit -see below Admission HPI Per Admitting Provider History obtained from patient, family, and records. Medical history significant for chronic diastolic heart failure (EF 55%, TTE 2023), PAD, hypertension, hyperlipidemia, patient patient asthma/COPD, OHS on BiPAP, DM2 on oral medications, history of factor V Leiden mutation, GERD, mood disorder, memory loss, learning disorder as per records, ongoing tobacco abuse. Last confinement 2019 for atypical chest pain. Patient has been having worsening bilateral LE pain more on the left for a few months now. No unusual back pain. Pain actually better on ambulation. Outpatient lumbar MRI from July 2024 showed 1. Severe multifactorial spinal canal stenosis at L4-L5 with severe left and moderate right neural foraminal narrowing. 2. Moderate spinal canal stenosis at L2-L3 with mild right neural foraminal narrowing. 3. Mild spinal canal stenosis at L1-L2 and L3-L4. 4. Central disc protrusion at L5-S1 contacts the bilateral transiting S1 nerve roots; moderate/severe bilateral foraminal narrowing at this level. Outpatient LE vascular study from July 2024 showed Ankle brachial index (SIMON) at rest is 0.31 on the right and 0.17 on the left. For the right lower extremity: Lower extremity doppler evaluation at rest shows evidence of severe arterial occlusive disease. Occlusive disease is most likely located in the aorto-iliac location. For the left lower extremity: Lower extremity doppler evaluation at rest shows evidence of severe arterial occlusive disease. Occlusive disease is most likely located in the aorto-iliac location. Additional disease is located in the femoropopliteal and tibial segments. [facility] surgery recommended outpatient MRA with and without contrast of the abdomen and pelvis to evaluate possible aortoiliac occlusive disease given iodine contrast allergy. Patient experienced achy left-sided chest pain yesterday while watching television. Nonpleuritic, nonradiating. No SOB. No prior episodes. Some relief following aspirin intake at home. Patient also noted worsening of left lower leg pain. Patient currently comfortable at the ER. Medical History as above Surgical History : Tonsillectomy/adenoidectomy, hernia repair Family History : Blood clots, seizures, asthma, heart disease Personal/Social history : 1 pack daily, no EtOH intake, disabled Discharge Exam Gen: A&O 3 NAD HEENT: NCAT, EOMI, not icteric. External ears normal. No rhinorrhea. Moist mucous membranes. Neck: Supple, full range of motion, no observable masses, No meningeal sign. Lungs: No Respiratory distress. CV: RRR, no edema. Abdomen: Soft, nondistended, No rebound tenderness. MSK: No joint swelling, no redness. bilateral LE erythema, poor pulses bilaterally Skin: No rashes, petechiae, lesions. Normal color per patient. Neuro: Normal Gait, Grossly intact. Psych: Appropriate for situation. Updated Medication List Medication Instructions Recorded Confirmed Type furosemide 40 mg tablet 40 mg PO QAM 08/26/20 10/02/24 History spironolactone 25 mg tablet 12.5 mg PO DAILY 08/26/20 10/02/24 History lisinopril 10 mg tablet 10 mg PO DAILY 10/26/20 10/02/24 History albuterol sulfate 2.5 mg/3 mL 2.5 mg inhalation Q4H PRN Wheezing 10/02/24 10/02/24 History (0.083 %) solution for nebulization atorvastatin 10 mg tablet 10 mg PO DAILY 10/02/24 10/02/24 History divalproex 500 mg tablet,extended 500 mg PO DAILY 10/02/24 10/02/24 History release 24 hr (Depakote ER) fluticasone fur. 100 mcg-umeclid 1 inh inhalation QAM 10/02/24 10/02/24 History 62.5 mcg-vilant 25 mcg inhalat.powder (Trelegy Ellipta) gabapentin 300 mg capsule 300 mg PO TID 10/02/24 10/02/24 History metformin 500 mg tablet,extended 500 mg PO QAM 10/02/24 10/02/24 History release 24 hr nicotine 21 mg/24 hr daily 1 patch transdermal DAILY 10/02/24 10/02/24 History transdermal patch pantoprazole 20 mg tablet,delayed 20 mg PO BID 10/02/24 10/02/24 History release semaglutide (weight loss) 0.25 0.25 mg subcut WK 10/02/24 10/02/24 History mg/0.5 mL subcutaneous pen injector (Tiffanivy) triamcinolone acetonide 0.05 % 1 applic topical BID PRN 10/02/24 10/02/24 History topical ointment DERMATITIS NEEDED ziprasidone HCl 20 mg capsule 20 mg PO BIDM 10/02/24 10/02/24 History Hospital Stay Data Consultations 10/02/24 01:23 ED Decision to Admit Stat 10/02/24 03:40 Consult Vascular Surgery Routine Diagnostic Imagining Performed 10/02/24 US venous doppler LE BI Stat 10/02/24 03:36 MR angio abdomen wo/w con Routine MR angio pelvis wo/w con Routine Pending Results Patient Have Any Pending Studies at Discharge: Yes Discharge Instructions Given to Patient (Per Discharging Provider) 1. Transfer to [facility] for further workup. Total Time Total Time Spent Total Time Spent (In Minutes): I spent a total of 35 minutes in direct patient care, including [id number] time with the patient and/or family, reviewing medical records, ordering and reviewing diagnostic tests, and coordinating care with other healthcare providers. This time includes: history taking, physical examination, medical decision making, counseling, ECG interpretation, imaging interpretation, lab interpretation, orders, and education, excluding time spent in the performance of separately billed services.
[2024-10-02 15:27] VITALS: PULSE 92
== END 2024-10-02 16:20 | disposition short-term general hospital (02) ==
LOC: EDINP 23:23 → ED 23:23 → 2S 10-02 02:57